=== PATIENT | female | born 1945 | race Caucasian/White ===

== ENCOUNTER 2020-11-18 17:16 | Inpatient (IN) | payer MEDICARE ==
[~2020-11-18] VITALS: Ht 160 cm; Wt 50.0 kg
--- NOTE | 2020-11-18 17:47 | NUR ---
CECILIA (SON) [phone] PLEASE CALL WITH AN UPDATE WHEN AVAILABLE
--- NOTE | 2020-11-18 18:17 | NUR ---
pt was on 6liter 02 nasal cannula, mildly SOB with talking, placed pt on NRB, pulse ox increased to 98% and pt stated she felt less SOB when talking, resting quietly on gurney, resp even and unlabored
[2020-11-18 18:53] LABS: BASOPHILS % (AUTO) 0.1 % (0-1); EOSINOPHILS % (AUTO) 0 % (0-6); MEAN PLATELET VOLUME 7.1 FL (7.4-10.4); RED CELL DISTRIBUTION WIDTH 15.7 % (11.5-14.5)
[2020-11-18 18:58] LABS: BASOPHILS # (AUTO) 0.1 X10'3 (0-0.2); LYMPHOCYTES # (AUTO) 125.5 X10'3 (1.1-4.8); LYMPHOCYTES % (AUTO) 89.1 % (21-51); MONOCYTES % (AUTO) 2.8 % (2-12); NEUTROPHILS # (AUTO) 11.3 X10'3 (1.8-7.7); PLATELET COUNT 245 X10'3 (140-440); RED BLOOD COUNT 4.09 X10'6 (4.20-5.60)
[2020-11-18 19:03] LABS: ALANINE AMINOTRANSFERASE 119 U/L (12-78); ALBUMIN 3.1 G/DL (3.4-5.0); ALBUMIN/GLOBULIN RATIO 0.9 (1.1-1.5); ALKALINE PHOSPHATASE 122 IU/L (46-116); ANION GAP 11 (8-16); ASPARTATE AMINO TRANSFERASE 118 U/L (10-37); BILIRUBIN,TOTAL 0.5 MG/DL (0.1-1.0); BLOOD UREA NITROGEN 13 MG/DL (7-18); BUN/CREATININE RATIO 16.9 (6.6-38.0); CALCIUM 8.8 MG/DL (8.5-10.1); CHLORIDE 100 MMOL/L (99-107); CREATININE 0.77 MG/DL (0.40-0.90); GLUCOSE 149 MG/DL (70-104); POTASSIUM 4.3 MMOL/L (3.5-5.1); SODIUM 140 MMOL/L (135-145); TOTAL CARBON DIOXIDE 28.8 MMOL/L (24-32); TOTAL PROTEIN 6.4 G/DL (6.4-8.2); eGFR 73 ML/MIN
[2020-11-18 19:04] LABS: D-DIMER 1.26 MG/L FEU (0-0.50)
--- NOTE | 2020-11-18 19:39 | NUR ---
O2 DECREASED TO 5.5 LTR ON OXY MASK. PT ABLE TO SPEAK IN FULL SCENTENCES. DOES C/O OF SOB.
[2020-11-18] MEDS ORDERED: normal saline 1000ml 1,000 ML IVB ONE (20:25)
[2020-11-18 20:39] LABS: HEMOGLOBIN 12.3 g/dl (12.0-16.0)
[2020-11-18 20:40] LABS: MEAN CORPUSCULAR HGB CONC 33.2 g/dL (33.0-36.5); MEAN CORPUSCULAR VOLUME 87.5 FL (78-98)
[2020-11-18 21:38] LABS: NUCLEATED RED BLOOD CELLS 2 /100WBC (0-0); TOTAL CELLS COUNTED 100
[2020-11-18 21:41] LABS: BURR CELLS 1+; PLATELET ESTIMATE NORMAL
[2020-11-18] MEDS ORDERED: iohexol 350MG/ML 100ml bottle IV ONE (22:58)
--- NOTE | 2020-11-18 23:15 | NUR ---
[facility] REJECTED TRANSFER DUE TO NO BEDS
--- NOTE | 2020-11-18 23:17 | NUR ---
[facility]IGI REJECTED TRANSFER DUE TO NOT BEING A TRAUMA, STROKE, OR STEMI
--- NOTE | 2020-11-19 00:13 | NUR ---
DARLING ACUÑA, EMRE HARRIS, BAN MARTÍNEZ, JOSÉ MIGUEL, CHRISSIE ALL REJECTED DUE TO NO BEDS
--- NOTE | 2020-11-19 00:43 | NUR ---
PT GIVEN COMODE AND WATER ,VITALS TAKEN PT ON FACE MASK WITH 5 LPM O2 GIVEN.
--- NOTE | 2020-11-19 00:53 | NUR ---
[facility] DECLINED, [facility] HAD A 3 DAY WAIT, DARLING HERRERA
--- NOTE | 2020-11-19 00:54 | NUR ---
EMRE, FIORDALIZA ABDULLAHI, [facility], [employer], [facility], GORGE, BAN BUENO DECLINED
--- NOTE | 2020-11-19 01:06 | NUR ---
[facility] DENIED
--- NOTE | 2020-11-19 06:09 | NUR ---
10 ltr O2 ON NON REBREATHER PER DECLINE IN SPO2. TEMP ELEVATED TO 101.5, INCREASE IN RESP AND HR. MD NOTIFIED.
--- NOTE | 2020-11-19 06:50 | NUR ---
CALLED [facility], NO BEDS. ONLY ACCEPTING STEMI, STROKE, OR TRAUMA
--- NOTE | 2020-11-19 07:16 | NUR ---
[facility] CALLED, WAITING FOR CALL BACK
[2020-11-19] MEDS ORDERED: levoFLOXACIN-Levaquin 750MG/D5 150 ML IV ONE (08:00)
--- NOTE | 2020-11-19 08:00 | NUR ---
pt desats with activity to the low 80's. pt switched from nrb to hfnc at 15 liters for pt's comfort
--- NOTE | 2020-11-19 08:25 | NUR ---
PT ON 15 LITERS NRB. RT NOTIFIED PT GETS VERY SOB WITH ACTIVITY. DESATS TO THE LOW 80'S WITH A LONG RECOVERY MD NOTIFED
--- NOTE | 2020-11-19 08:37 | NUR ---
[facility] HAS NO BEDS
--- NOTE | 2020-11-19 11:09 | NUR ---
pt has been resting offers no complaints
[2020-11-19 12:13] LABS: BASOPHILS % (AUTO) 0.2 % (0-1); MEAN CORPUSCULAR HEMOGLOBIN 28.9 PG (27.0-31.0); MEAN PLATELET VOLUME 6.5 FL (7.4-10.4)
[2020-11-19 12:16] LABS: BASOPHILS # (AUTO) 0.4 X10'3 (0-0.2); EOSINOPHILS # (AUTO) 0.3 X10'3 (0-0.9); EOSINOPHILS % (AUTO) 0.2 % (0-6); HEMOGLOBIN 10.5 g/dl (12.0-16.0); LYMPHOCYTES # (AUTO) 135.1 X10'3 (1.1-4.8); LYMPHOCYTES % (AUTO) 87.8 % (21-51); MEAN CORPUSCULAR HGB CONC 32.7 g/dL (33.0-36.5); MEAN CORPUSCULAR VOLUME 88.4 FL (78-98); MONOCYTES % (AUTO) 2.6 % (2-12); NEUTROPHILS # (AUTO) 14.2 X10'3 (1.8-7.7); NEUTROPHILS % (AUTO) 9.2 % (42-75); PLATELET COUNT 262 X10'3 (140-440); RED BLOOD COUNT 3.62 X10'6 (4.20-5.60); RED CELL DISTRIBUTION WIDTH 15.6 % (11.5-14.5)
[2020-11-19 12:23] LABS: ALBUMIN 2.5 G/DL (3.4-5.0); ANION GAP 7 (8-16); BLOOD UREA NITROGEN 16 MG/DL (7-18); BUN/CREATININE RATIO 17.6 (6.6-38.0); CHLORIDE 100 MMOL/L (99-107); CREATININE 0.91 MG/DL (0.40-0.90); GLUCOSE 121 MG/DL (70-104); POTASSIUM 5.8 MMOL/L (3.5-5.1); SODIUM 132 MMOL/L (135-145); TOTAL CARBON DIOXIDE 24.6 MMOL/L (24-32); eGFR 61 ML/MIN
[2020-11-19 13:06] LABS: BANDS% (MANUAL) 2 % (0-10); MONOCYTES % (MANUAL) 1 % (2-12); NEUTROPHILS % (MANUAL) 7 % (42-75); SMUDGE CELLS 2+; TOTAL CELLS COUNTED 100
[2020-11-19 13:07] LABS: LYMPHOCYTES % (MANUAL) 90 % (21-51)
[2020-11-19 13:08] LABS: ELLIPTOCYTES FEW; PLATELET ESTIMATE NORMAL; ROULEAUX 1+; SCHISTOCYTES FEW; TEAR DROP CELLS FEW
[2020-11-19] MEDS ORDERED: REMDESIVIR INJ 100 MG in normal saline 100ml IV soln 80 ML IV STA (14:37)
[2020-11-19] MEDS ORDERED: REMDESIVIR 200 MG in NS 100ml IVPB Loading dose IV ONE (14:45)
[2020-11-19] MEDS ORDERED: NO HOME MEDS PO (14:47)
[2020-11-19 16:35] LABS: ABG BASE EXCESS -0.2 mmol/L (-2.0-2.0); ABG HCO3 22.1 mmol/L (22.0-26.0); ABG OXYGEN SATURATION 87.9 % (94-97); ABG PCO2 (T) 29.9 mmHg (32.0-45.0); ABG PO2 (T) 54.4 mmHg (75.0-100.0); ALLEN'S TEST POSITIVE; FCOHb 0.1 % (0.0-3.9); FLOW 15 L/min; FMetHb 0.3 % (0.0-1.5); FO2Hb 87.5 % (94-97); PATIENT TEMPERATURE 37.9; TOTAL HEMOGLOBIN 10.8 G/dl (12.0-16.0)
--- NOTE | 2020-11-19 16:49 | NUR ---
abg results to md. pt may go on bipap when needed.
--- NOTE | 2020-11-19 17:29 | NUR ---
PT ON V60 PLUS HIFLO Addendum: 11/19/20 at 1730 by Nohelia De Santiago RT Amended: Links added.
[2020-11-19] MEDS ORDERED: potassium Cl 20 mEq SR tablet PO PRN ×2 (19:35)
[2020-11-19] MEDS ORDERED: ondansetron/PF 4mg/2ml inj IV PRN (19:35)
[2020-11-19] MEDS: normal saline 1000ml 1,000 ML IV SCH (19:35)
[2020-11-19] MEDS: enoxaparin 40mg/0.4ml syringe SUBCUT SCH (19:35)
[2020-11-19] MEDS ORDERED: magnesium Cl slow-release 64mg tablet PO PRN (19:35)
[2020-11-19] MEDS ORDERED: magnesium 2GM in 50ml NS 50 ML IV PRN (19:35)
[2020-11-19] MEDS ORDERED: potassium Cl 40MEQ/1/2NS 520ml 520 ML IV PRN ×2 (19:35)
[2020-11-19] MEDS ORDERED: magnesium 4gm in 100ml NS 100 ML IV PRN (19:35)
[2020-11-19] MEDS: K and/or MAG REPLACEMENT MC SCH (20:00)
--- NOTE | 2020-11-19 21:27 | NUR ---
PT UP TO COMMODE W/ STANDBY ASSIST. PT EXTREAMLY WEAK. O2 SATS DROPPED TO 68% ON HIGH FLOW 30%. PT SLOW TO RECOVER. RT PAGED TO BEDSIDE. NON REBREATHER 15 LTS APPLIED OVER HIGH FLOW NC. AFTER 8 MINIUTES SPO2 TO 85%. PT SHOWS SIGNIFICANT DECLINE IN MUSCLE STRENGHT FROM LAST NIGHT.
[2020-11-19 21:51] LABS: POTASSIUM 4.5 MMOL/L (3.5-5.1)
[2020-11-19 22:35] LABS: C-REACTIVE PROTEIN 8.57 MG/DL (0.0-0.5)
--- NOTE | 2020-11-19 23:30 | NUR ---
RECEIVED REPORT FROM NOREEN RUSSELL.
[2020-11-19 23:55] LABS: D-DIMER 15.18 MG/L FEU (0-0.50)
[2020-11-20] VITALS (7 sets, daily range): BP systolic 97–118; BP diastolic 50–62
[2020-11-20] MEDS: dexamethasone 4mg/ml inj IV SCH ×3 (00:27→20:17)
--- NOTE | 2020-11-20 01:03 | NUR ---
MESSAGE: [id number] ISABEL LANCE 74 HERE FOR COVID. RECENT D-DIMER UP TO 15.18 FROM 1.26. THANK YOU. #[phone] SOCO
--- NOTE | 2020-11-20 01:11 | NUR ---
DISCUSSED WITH DR. BENTLEY REGARDING D-DIMER OF 15.18. SAID GIVE WT BASED LOVENOX ONCE. WHICH SHE RECEIVED 40MG ALREADY SO I WILL PUT AN ORDER FOR ANOTHER 40MG LOVENOX TO GIVE NOW. Addendum: 11/20/20 at 0124 by Heather Thomas RN I DID NOT PUT THE ORDER FOR 40MG. BUT CLARFY THE DOSE WITH DR. BENTLEY. AND SHE ADVISED TO GIVE 10MG.
[2020-11-20] MEDS ORDERED: enoxaparin 40mg/0.4ml syringe SUBCUT SCH (01:15)
--- NOTE | 2020-11-20 01:23 | NUR ---
MESSAGE: [id number] ISABEL LANCE 74 COVID. I RECEIVED ORDER EARLIER FOR WT BASE LOVENOX ONCE. I FORGOT TO MENTION SHE RECEIVED 40MG EARLIER TONIGHT. AND SHE ONLY WEIGHS 50MG. DO YOU MEAN ANOTHER 10MG LOVENOX OR FULL 50MG? THANK YOU. SOCO
[2020-11-20] MEDS ORDERED: enoxaparin 30mg/0.3ml syringe SUBCUT ONE (01:25)
--- NOTE | 2020-11-20 01:38 | NUR ---
THERE WAS NO LINE TO GIVE JUST 10MG LOVENOX OUT OF 30MG SYRINGE. TALKED TO PHARMACY AND SHE SAID SHE WILL MAKE IT.
[2020-11-20] MEDS ORDERED: enoxaparin 50mg/0.5ml (from 3ml vial) syringe SUBCUT ONE (01:40)
[2020-11-20] MEDS: acetaminophen 325mg tablet PO PRN (01:42)
[2020-11-20] MEDS: normal saline 1000ml 1,000 ML IV SCH ×2 (06:06→15:47)
--- NOTE | 2020-11-20 06:35 | NUR ---
Problems reprioritized. Patient report given, questions answered & plan of care reviewed with NOREEN VILA.
[2020-11-20 08:06] LABS: BASOPHILS # (AUTO) 0.1 X10'3 (0-0.2); BASOPHILS % (AUTO) 0.1 % (0-1); EOSINOPHILS # (AUTO) 0.1 X10'3 (0-0.9); EOSINOPHILS % (AUTO) 0 % (0-6); HEMATOCRIT 33.9 % (35.0-45.0); HEMOGLOBIN 10.3 g/dl (12.0-16.0); LYMPHOCYTES # (AUTO) 106.9 X10'3 (1.1-4.8); LYMPHOCYTES % (AUTO) 90.9 % (21-51); MEAN CORPUSCULAR HEMOGLOBIN 27.8 PG (27.0-31.0); MEAN CORPUSCULAR HGB CONC 30.5 g/dL (33.0-36.5); MEAN CORPUSCULAR VOLUME 91.3 FL (78-98); MEAN PLATELET VOLUME 6.7 FL (7.4-10.4); MONOCYTES # (AUTO) 1.8 X10'3 (0-0.9); MONOCYTES % (AUTO) 1.5 % (2-12); NEUTROPHILS # (AUTO) 8.8 X10'3 (1.8-7.7); NEUTROPHILS % (AUTO) 7.5 % (42-75); PLATELET COUNT 223 X10'3 (140-440); RED BLOOD COUNT 3.71 X10'6 (4.20-5.60); RED CELL DISTRIBUTION WIDTH 15.6 % (11.5-14.5)
[2020-11-20 08:12] LABS: ALBUMIN 2.2 G/DL (3.4-5.0); ANION GAP 13 (8-16); BLOOD UREA NITROGEN 18 MG/DL (7-18); CALCIUM 7.7 MG/DL (8.5-10.1); CHLORIDE 104 MMOL/L (99-107); CREATININE 0.75 MG/DL (0.40-0.90); GLUCOSE 141 MG/DL (70-104); MAGNESIUM 2.2 MG/DL (1.5-2.4); POTASSIUM 3.6 MMOL/L (3.5-5.1); SODIUM 141 MMOL/L (135-145); TOTAL CARBON DIOXIDE 23.7 MMOL/L (24-32); eGFR 76 ML/MIN
[2020-11-20] MEDS: REMDESIVIR 100 MG in NS 100ml IVPB IV SCH (08:40)
[2020-11-20] MEDS: enoxaparin 40mg/0.4ml syringe SUBCUT SCH (08:40)
[2020-11-20 09:04] LABS: TOTAL CELLS COUNTED 100
[2020-11-20 09:05] LABS: ELLIPTOCYTES FEW; PLATELET ESTIMATE NORMAL
[2020-11-20 09:06] LABS: TEAR DROP CELLS FEW
[2020-11-20 09:07] LABS: BURR CELLS 1+; SCHISTOCYTES FEW; SMUDGE CELLS 3+
[2020-11-20 13:06] LABS: WHITE BLOOD COUNT 117.7 X10'3 (4.5-11.0)
--- NOTE | 2020-11-20 16:34 | NUR ---
Dr. TAMEZ was paged . regarding pt in 4012 B, laboratory called and wanted to know if the new lab ordered under a miscellaneous order is needed because the same lab was sent yesterday and pending results ,fady SORTO [phone]
[2020-11-20] MEDS ORDERED: LIDOcaine 2% 10ml TOPICAL JELLY (Urojet) TP ONE (18:20)
[2020-11-20] MEDS: K and/or MAG REPLACEMENT MC SCH (20:00)
[2020-11-21] MEDS: normal saline 1000ml 1,000 ML IV SCH (02:46)
[2020-11-21 06:00] VITALS: BP 95/48
--- NOTE | 2020-11-21 06:05 | NUR ---
RECEIVED REPORT FROM NOREEN WAN
--- NOTE | 2020-11-21 06:26 | NUR ---
AT THE TIME OF MORNING VITAL @052 Addendum: 11/21/20 at 0630 by Heather Thomas RN @0525, PT WAS LAYING ON RIGHT SIDE AND O2 SAT 87%. CHANGED POSITION TO LEFT SIDE AND STARTED DESATTING DOWN TO MID 60'S. O2 NOT COMING UP. RT WAS CALLED. PLACED PT ON PRONE AGAIN AND IT TOOK ABOUT 20 MIN TO COME UP TO MID 80'S.
--- NOTE | 2020-11-21 06:36 | NUR ---
Problems reprioritized. Patient report given, questions answered & plan of care reviewed with NOREEN DICKERSON.
[2020-11-21] MEDS: K and/or MAG REPLACEMENT MC SCH ×2 (08:00→19:44)
[2020-11-21] MEDS: dexamethasone 4mg/ml inj IV SCH ×2 (08:13→19:54)
[2020-11-21] MEDS: enoxaparin 50mg/0.5ml (from 3ml vial) syringe SUBCUT SCH ×2 (08:15→19:54)
[2020-11-21] MEDS: REMDESIVIR 100 MG in NS 100ml IVPB IV SCH (08:16)
[2020-11-21 08:36] LABS: BASOPHILS % (AUTO) 0.1 % (0-1); EOSINOPHILS % (AUTO) 0 % (0-6); MEAN CORPUSCULAR VOLUME 90.4 FL (78-98)
[2020-11-21 08:41] LABS: BASOPHILS # (AUTO) 0.2 X10'3 (0-0.2); HEMOGLOBIN 10.4 g/dl (12.0-16.0); LYMPHOCYTES % (AUTO) 82.7 % (21-51); MEAN CORPUSCULAR HEMOGLOBIN 28.5 PG (27.0-31.0); MEAN CORPUSCULAR HGB CONC 31.6 g/dL (33.0-36.5); MEAN PLATELET VOLUME 6.8 FL (7.4-10.4); MONOCYTES # (AUTO) 7.3 X10'3 (0-0.9); MONOCYTES % (AUTO) 4.2 % (2-12); NEUTROPHILS # (AUTO) 22.5 X10'3 (1.8-7.7); PLATELET COUNT 227 X10'3 (140-440); RED BLOOD COUNT 3.65 X10'6 (4.20-5.60); RED CELL DISTRIBUTION WIDTH 15.8 % (11.5-14.5)
[2020-11-21 09:15] LABS: ANION GAP 11 (8-16); BLOOD UREA NITROGEN 18 MG/DL (7-18); BUN/CREATININE RATIO 29.5 (6.6-38.0); CALCIUM 7.4 MG/DL (8.5-10.1); CHLORIDE 106 MMOL/L (99-107); CREATININE 0.61 MG/DL (0.40-0.90); GLUCOSE 135 MG/DL (70-104); MAGNESIUM 2.2 MG/DL (1.5-2.4); POTASSIUM 4.3 MMOL/L (3.5-5.1); SODIUM 141 MMOL/L (135-145); TOTAL CARBON DIOXIDE 23.6 MMOL/L (24-32); eGFR > 90 ML/MIN
[2020-11-21 09:21] LABS: WHITE BLOOD COUNT 172.9 X10'3 (4.5-11.0)
[2020-11-21 10:00] VITALS: BP 125/56
[2020-11-21 11:15] LABS: C-REACTIVE PROTEIN 7.02 MG/DL (0.0-0.5); LACTATE DEHYDROGENASE 623 U/L (81-234)
[2020-11-21 11:23] LABS: D-DIMER 5.24 MG/L FEU (0-0.50)
[2020-11-21 11:25] LABS: TOTAL CELLS COUNTED 100
[2020-11-21 11:26] LABS: PLATELET ESTIMATE NORMAL; SMUDGE CELLS 3+
[2020-11-21 11:27] LABS: BURR CELLS 2+
[2020-11-21 11:28] LABS: ACANTHOCYTES FEW; SCHISTOCYTES FEW
--- NOTE | 2020-11-21 16:30 | NUR ---
fam member requested to have leukemia labs drawn for family hx of leukemia and possible presence of leukemia in patient, hospitalist denied this request stating that there is no oncologist to f/u w/about the labs if they were drawn and that the patient needs to get over her covid illness first and then f/u w/outpatient oncologist
[2020-11-21 18:00] VITALS: BP 118/60
--- NOTE | 2020-11-21 18:38 | NUR ---
gave report to reid urban
--- NOTE | 2020-11-21 21:49 | NUR ---
update given to Eduardo her son. son again requested that labs be drawn for leukemia studies. Dr. Bailey note indicates that he thought they were already drawn. will ask MD in am.
[2020-11-21 22:00] VITALS: BP 57/60
--- NOTE | 2020-11-21 23:30 | NUR ---
pt states she is anxious and agitated "I just don't know why" noted breathing work has increased and resp rate up to 28-30 with HR at 110. educated on side effects of decadron as well as air hunger symptoms. noted giving patient robitussin and tylenol to assist with painful stomach and cough suppression. verbalized understanding. "I feel like there is more going on here than just the covid." will continue to closely monitor sats and air hunger in case pt needs cpap or higher. educated pt on next steps for increased oxygen demand. verbalized understanding.
[2020-11-21] MEDS: guaiFENesin/DM 10ml UD oral syrup PO PRN (23:44)
[2020-11-21] MEDS: acetaminophen 325mg tablet PO PRN (23:45)
[2020-11-22 02:00] VITALS: BP 99/48
[2020-11-22] MEDS: guaiFENesin/DM 10ml UD oral syrup PO PRN ×3 (05:53→19:59)
[2020-11-22] MEDS: acetaminophen 325mg tablet PO PRN ×3 (05:54→20:28)
[2020-11-22 06:00] VITALS: BP 108/55
--- NOTE | 2020-11-22 06:05 | NUR ---
received report from reid urban
--- NOTE | 2020-11-22 06:27 | NUR ---
reported to days. noted pt fever broke and bed sweaty - total linen change, shower cap on hair. repositioned, robitussin given. noted desat to 70% with any rolling or movement. encouraged pt to prone as much as possible. pt able to have a couple bites of applesauce and ensure ordered for meals.
[2020-11-22] MEDS: K and/or MAG REPLACEMENT MC SCH ×2 (07:47→22:00)
[2020-11-22] MEDS: lactose-reduced food (Ensure High Protein) 237ml bottle PO SCH ×4 (07:47→18:00)
[2020-11-22] MEDS: REMDESIVIR 100 MG in NS 100ml IVPB IV SCH (07:51)
[2020-11-22] MEDS: dexamethasone 4mg/ml inj IV SCH ×2 (07:52→19:59)
[2020-11-22] MEDS: enoxaparin 50mg/0.5ml (from 3ml vial) syringe SUBCUT SCH ×2 (07:53→20:00)
[2020-11-22 08:58] LABS: BASOPHILS # (AUTO) 0.5 X10'3 (0-0.2); BASOPHILS % (AUTO) 0.3 % (0-1); EOSINOPHILS # (AUTO) 0.4 X10'3 (0-0.9); EOSINOPHILS % (AUTO) 0.2 % (0-6); HEMATOCRIT 33.3 % (35.0-45.0); HEMOGLOBIN 10.5 g/dl (12.0-16.0); LYMPHOCYTES # (AUTO) 140.7 X10'3 (1.1-4.8); LYMPHOCYTES % (AUTO) 80.5 % (21-51); MEAN CORPUSCULAR HEMOGLOBIN 28.1 PG (27.0-31.0); MEAN CORPUSCULAR HGB CONC 31.4 g/dL (33.0-36.5); MEAN CORPUSCULAR VOLUME 89.5 FL (78-98); MEAN PLATELET VOLUME 6.8 FL (7.4-10.4); MONOCYTES # (AUTO) 3.9 X10'3 (0-0.9); MONOCYTES % (AUTO) 2.2 % (2-12); NEUTROPHILS # (AUTO) 29.5 X10'3 (1.8-7.7); NEUTROPHILS % (AUTO) 16.8 % (42-75); PLATELET COUNT 248 X10'3 (140-440); RED BLOOD COUNT 3.72 X10'6 (4.20-5.60); RED CELL DISTRIBUTION WIDTH 15.9 % (11.5-14.5)
[2020-11-22 09:23] LABS: D-DIMER 2.96 MG/L FEU (0-0.50)
[2020-11-22 09:31] LABS: ANION GAP 8 (8-16); BLOOD UREA NITROGEN 20 MG/DL (7-18); BUN/CREATININE RATIO 26.7 (6.6-38.0); CHLORIDE 107 MMOL/L (99-107); CREATININE 0.75 MG/DL (0.40-0.90); GLUCOSE 155 MG/DL (70-104); POTASSIUM 3.7 MMOL/L (3.5-5.1); SODIUM 142 MMOL/L (135-145)
[2020-11-22 09:32] LABS: ALBUMIN 1.9 G/DL (3.4-5.0); C-REACTIVE PROTEIN 5.65 MG/DL (0.0-0.5); MAGNESIUM 2.2 MG/DL (1.5-2.4); eGFR 76 ML/MIN
[2020-11-22 09:47] VITALS: BP 120/60
[2020-11-22 10:53] LABS: SMUDGE CELLS 3+; TOTAL CELLS COUNTED 100
[2020-11-22 10:54] LABS: BURR CELLS 1+; PLATELET ESTIMATE NORMAL; SCHISTOCYTES FEW
[2020-11-22 14:00] VITALS: BP 105/62
[2020-11-22 18:00] VITALS: BP 125/67
--- NOTE | 2020-11-22 18:06 | NUR ---
gave report to reid urban
[2020-11-22 22:00] VITALS: BP 113/51
[2020-11-23 02:00] VITALS: BP 113/55
[2020-11-23] MEDS: guaiFENesin/DM 10ml UD oral syrup PO PRN ×2 (03:25→09:55)
[2020-11-23] MEDS: acetaminophen 325mg tablet PO PRN ×3 (03:25→17:17)
--- NOTE | 2020-11-23 04:00 | NUR ---
repositioned patient onto right side again as pt was keeping sats at 88%. tightened HF oxygen, tolerated better.
--- NOTE | 2020-11-23 05:08 | NUR ---
pt stayed at 40L 100%FiO2 and 15L NRB tonight. sats mostly in th 90-94% range. desat with any eating or movement. non productive cough. robitussin and tylenol ATC. right side laying better than left. "I'm just so exhausted I'm just going to keep sleeping."
--- NOTE | 2020-11-23 06:21 | NUR ---
Patient in room ORTHO 4013. I have received report from Naty SORTO and had the opportunity to ask questions and assume patient care.
--- NOTE | 2020-11-23 06:24 | NUR ---
reported to days. noted sats again down to 90%. pt may benefit from cpap today.
[2020-11-23 06:25] VITALS: BP 125/65
[2020-11-23] MEDS: REMDESIVIR 100 MG in NS 100ml IVPB IV SCH (07:00)
[2020-11-23] MEDS: enoxaparin 50mg/0.5ml (from 3ml vial) syringe SUBCUT SCH ×2 (07:01→20:50)
[2020-11-23] MEDS: dexamethasone 4mg/ml inj IV SCH ×2 (07:01→20:50)
[2020-11-23 07:57] LABS: EOSINOPHILS % (AUTO) 0 % (0-6); HEMOGLOBIN 11.1 g/dl (12.0-16.0)
[2020-11-23] MEDS: K and/or MAG REPLACEMENT MC SCH ×2 (08:00→19:26)
[2020-11-23 08:03] LABS: BASOPHILS # (AUTO) 0.4 X10'3 (0-0.2); BASOPHILS % (AUTO) 0.3 % (0-1); HEMATOCRIT 35.1 % (35.0-45.0); LYMPHOCYTES # (AUTO) 123.2 X10'3 (1.1-4.8); LYMPHOCYTES % (AUTO) 82.6 % (21-51); MEAN CORPUSCULAR HEMOGLOBIN 28.2 PG (27.0-31.0); MEAN CORPUSCULAR HGB CONC 31.5 g/dL (33.0-36.5); MEAN CORPUSCULAR VOLUME 89.6 FL (78-98); MEAN PLATELET VOLUME 6.6 FL (7.4-10.4); MONOCYTES # (AUTO) 6.4 X10'3 (0-0.9); MONOCYTES % (AUTO) 4.3 % (2-12); NEUTROPHILS % (AUTO) 12.8 % (42-75); PLATELET COUNT 226 X10'3 (140-440); RED BLOOD COUNT 3.92 X10'6 (4.20-5.60); RED CELL DISTRIBUTION WIDTH 16.2 % (11.5-14.5)
[2020-11-23 08:07] LABS: WHITE BLOOD COUNT 149.1 X10'3 (4.5-11.0)
[2020-11-23 08:17] LABS: ALBUMIN 1.9 G/DL (3.4-5.0); ANION GAP 8 (8-16); BLOOD UREA NITROGEN 20 MG/DL (7-18); BUN/CREATININE RATIO 32.3 (6.6-38.0); C-REACTIVE PROTEIN 8.03 MG/DL (0.0-0.5); CHLORIDE 107 MMOL/L (99-107); CREATININE 0.62 MG/DL (0.40-0.90); GLUCOSE 139 MG/DL (70-104); MAGNESIUM 2.3 MG/DL (1.5-2.4); POTASSIUM 4.5 MMOL/L (3.5-5.1); SODIUM 144 MMOL/L (135-145); TOTAL CARBON DIOXIDE 29.1 MMOL/L (24-32); eGFR > 90 ML/MIN
--- NOTE | 2020-11-23 08:19 | NUR ---
PAGER ID: [phone] MESSAGE: [id number] Lindsay BOLANOS critical at 149.1 crozier [phone]
[2020-11-23] MEDS: lactose-reduced food (Ensure High Protein) 237ml bottle PO SCH ×3 (08:24→18:00)
[2020-11-23 08:33] LABS: TOTAL CELLS COUNTED 100
[2020-11-23 08:34] LABS: ANISOCYTOSIS 1+; PLATELET ESTIMATE NORMAL; POIKILOCYTOSIS FEW; SCHISTOCYTES FEW
[2020-11-23 10:07] VITALS: BP_SYST 127
[2020-11-23] MEDS: morphine 2 MG/ML inj. syringe IV PRN ×3 (10:42→23:21)
[2020-11-23 10:58] LABS: D-DIMER 3.32 MG/L FEU (0-0.50)
--- NOTE | 2020-11-23 11:29 | NUR ---
Patient is proned at this time
[2020-11-23 14:00] VITALS: BP 110/71
--- NOTE | 2020-11-23 14:54 | NUR ---
Initial: Pt admit DX COVID-19, PNA, acute respiratory failure, and probable CLL per MD note. PO remains poor ~23% avg heart healthy meals past 4 days refusing yesterday w/ 100% ensure high protein TIDWM started 11/22 by night RN not meeting needs. Noted on 55L HFNC today per EMR likely impacting PO intake. LBM 11/17; would benefit from routine bowel care this admit. RD attempted to reach RN multiple times today regarding change to Ensure Enlive ONS as more appropriate given PO trends and routine bowel care if MD agreeable however unable to reach RN. Pt would also benefit from liberalizing to regular diet given no PMH, Na WNL, and poor PO trends. Will continue to monitor. Rec: 1. liberalize to regular diet; encourage PO 2. Ensure High Protein TIDWM per night RN; change to Ensure Enlive TIDWM to optimize kcal/protein intake if MD agreeable 3. routine bowel care; 6 days constipation without bowel care this admit 4. scaled wt this admit; subsequent weekly wts Addendum: 11/23/20 at [address] Amended: Links added.
--- NOTE | 2020-11-23 16:33 | NUR ---
Patient has spent much of the day in prone position
[2020-11-23] MEDS ORDERED: guaiFENesin 100mg/DM 10mg oral syrup 5 ML CUP PO PRN (17:30)
[2020-11-23 18:00] VITALS: BP 124/66
--- NOTE | 2020-11-23 18:38 | NUR ---
Problems reprioritized. Patient report given, questions answered & plan of care reviewed with Coretta SORTO.
--- NOTE | 2020-11-23 18:45 | NUR ---
Patient in room ORTHO 4013. I have received report from Deepika SORTO and had the opportunity to ask questions and assume patient care.
[2020-11-23 22:00] VITALS: BP 132/83
--- NOTE | 2020-11-23 23:20 | NUR ---
Took morphine out to give to pt per MD orders. Pts IV infiltrated. Unable to give morphine. Attempted to start new IV unsuccessfully. Called the ER to see if they are able to help. Addendum: 11/24/20 at 0300 by Coretta Lester RN ER nurse was able to get a 22g in her L forearm So I was able to give pt morphine per MD orders at this time.
[2020-11-24 02:00] VITALS: BP 117/65
[2020-11-24] MEDS: morphine 2 MG/ML inj. syringe IV PRN (03:01)
[2020-11-24 06:00] VITALS: BP 100/57
--- NOTE | 2020-11-24 06:34 | NUR ---
Problems reprioritized. Patient report given, questions answered & plan of care reviewed with Brad SORTO.
[2020-11-24] MEDS: lactose-reduced food (Ensure High Protein) 237ml bottle PO SCH ×4 (08:00→19:13)
[2020-11-24] MEDS: K and/or MAG REPLACEMENT MC SCH ×2 (08:00→20:00)
[2020-11-24] MEDS: dexamethasone 4mg/ml inj IV SCH ×2 (08:09→20:59)
[2020-11-24] MEDS: enoxaparin 50mg/0.5ml (from 3ml vial) syringe SUBCUT SCH ×2 (08:10→21:00)
[2020-11-24 08:13] LABS: BASOPHILS % (AUTO) 0.2 % (0-1); EOSINOPHILS % (AUTO) 0 % (0-6); MEAN PLATELET VOLUME 6.8 FL (7.4-10.4)
[2020-11-24 08:16] LABS: BASOPHILS # (AUTO) 0.2 X10'3 (0-0.2); HEMATOCRIT 38.4 % (35.0-45.0); LYMPHOCYTES # (AUTO) 121.8 X10'3 (1.1-4.8); LYMPHOCYTES % (AUTO) 82.9 % (21-51); MEAN CORPUSCULAR HEMOGLOBIN 28.2 PG (27.0-31.0); MEAN CORPUSCULAR HGB CONC 31.3 g/dL (33.0-36.5); MEAN CORPUSCULAR VOLUME 90.2 FL (78-98); MONOCYTES # (AUTO) 5.6 X10'3 (0-0.9); MONOCYTES % (AUTO) 3.8 % (2-12); NEUTROPHILS # (AUTO) 19.3 X10'3 (1.8-7.7); NEUTROPHILS % (AUTO) 13.1 % (42-75); PLATELET COUNT 241 X10'3 (140-440); RED BLOOD COUNT 4.26 X10'6 (4.20-5.60); RED CELL DISTRIBUTION WIDTH 16.5 % (11.5-14.5)
[2020-11-24 08:27] LABS: WHITE BLOOD COUNT 146.9 X10'3 (4.5-11.0)
[2020-11-24 08:28] LABS: D-DIMER 2.47 MG/L FEU (0-0.50)
[2020-11-24 08:43] LABS: ALBUMIN 2.2 G/DL (3.4-5.0); ANION GAP 7 (8-16); BLOOD UREA NITROGEN 20 MG/DL (7-18); BUN/CREATININE RATIO 30.8 (6.6-38.0); C-REACTIVE PROTEIN 5.07 MG/DL (0.0-0.5); CALCIUM 8.1 MG/DL (8.5-10.1); CHLORIDE 102 MMOL/L (99-107); CREATININE 0.65 MG/DL (0.40-0.90); GLUCOSE 136 MG/DL (70-104); MAGNESIUM 2.4 MG/DL (1.5-2.4); POTASSIUM 4.7 MMOL/L (3.5-5.1); SODIUM 141 MMOL/L (135-145); TOTAL CARBON DIOXIDE 32.1 MMOL/L (24-32); eGFR 89 ML/MIN
[2020-11-24 09:06] LABS: ANISOCYTOSIS 1+; PLATELET ESTIMATE NORMAL; POIKILOCYTOSIS FEW; SCHISTOCYTES FEW; TOTAL CELLS COUNTED 100
[2020-11-24 11:00] VITALS: BP 113/54
[2020-11-24 16:00] VITALS: BP 103/51
--- NOTE | 2020-11-24 17:24 | NUR ---
PT STATED DR. TAMEZ TOOK HER OFF HIFLOW NC AND SAID SHE DIDN'T HAVE TO WEAR IT. PT ON NRB ONLY STATING 88%. EDUCATED PT ON HIFLOW NC AND NEEDING HUMIDIFIACTION PT REFUSED AND AGAIN STATED DR. TAMEZ TOLD ME I DON'T HAVE TO WEAR IT. NO INFORMATION IN DR. TAMEZ PROGRESS NOTES Addendum: 11/24/20 at 1726 by Nohelia De Santiago RT Amended: Links added.
[2020-11-24 18:00] VITALS: BP 121/61
--- NOTE | 2020-11-24 18:30 | NUR ---
Patient in room ORTHO 4013. I have received report from Brad SORTO and had the opportunity to ask questions and assume patient care. Addendum: 11/24/20 at 1847 by Carlita Banda RN Amended: Links added.
--- NOTE | 2020-11-24 20:50 | NUR ---
Pt.awake A & O at this time. Pt. exhibiting mild SOB on HFNC at fio2 of 100% saturating between 88% to 90%. Elevated HOB into high fowlers position to facilitate better breathing- non re-breath mask in place. Encouraged pt. to lay in prone position to facilitate better lung ventilation; pt. cooperative and participating in proning. Bed in low position and call light within reach. Addendum: 11/25/20 at 0209 by Carlita Banda RN Amended: Links added.
[2020-11-24 22:00] VITALS: BP 127/73
[2020-11-25 02:00] VITALS: BP 115/65
[2020-11-25 06:00] VITALS: BP 104/53
--- NOTE | 2020-11-25 06:20 | NUR ---
Problems reprioritized. Patient report given, questions answered & plan of care reviewed with Dee OSRTO. Addendum: 11/25/20 at 0700 by Carlita Banda RN Amended: Links added.
--- NOTE | 2020-11-25 06:52 | NUR ---
Patient in room ORTHO 4013B. I have received report from NOREEN KIMBLE and had the opportunity to ask questions and assume patient care.
[2020-11-25 07:58] LABS: D-DIMER 1.66 MG/L FEU (0-0.50)
[2020-11-25] MEDS: K and/or MAG REPLACEMENT MC SCH ×2 (08:00→20:00)
[2020-11-25 08:13] LABS: C-REACTIVE PROTEIN 2.87 MG/DL (0.0-0.5); MAGNESIUM 2.4 MG/DL (1.5-2.4)
[2020-11-25] MEDS: dexamethasone 4mg/ml inj IV SCH ×2 (08:19→20:33)
[2020-11-25 10:00] VITALS: BP 101/65
[2020-11-25] MEDS: enoxaparin 50mg/0.5ml (from 3ml vial) syringe SUBCUT SCH ×2 (10:28→20:33)
[2020-11-25 14:00] VITALS: BP 111/63
--- NOTE | 2020-11-25 17:46 | NUR ---
Page Sent PAGER ID: [phone] MESSAGE: BECKA [phone] RE: ISABEL LANCE [id number] CAN I GET A BOWEL REGIMEN FOR PT? SHE DOES NOT REMEMBER LAST BM, AND LAST CHARTED WAS SEVERAL DAYS AGO. PT DOES HAVE ACTIVE BOWEL SOUNDS. THANKS!
[2020-11-25 18:00] VITALS: BP 127/80
[2020-11-25] MEDS: lactose-reduced food (Ensure High Protein) 237ml bottle PO SCH (18:08)
--- NOTE | 2020-11-25 18:40 | NUR ---
Problems reprioritized. Patient report given, questions answered & plan of care reviewed with NOREEN LESLIE.
[2020-11-25 22:00] VITALS: BP 118/69
[2020-11-26] MEDS: LORazepam 0.5 MG tablet PO PRN (01:21)
[2020-11-26 02:00] VITALS: BP 113/71
--- NOTE | 2020-11-26 06:26 | NUR ---
Patient in room ORTHO 4013. I have received report from Linda SORTO and had the opportunity to ask questions and assume patient care.
[2020-11-26] MEDS ORDERED: magnesium hydroxide 30ml (MOM) UD suspension PO ONE (07:00)
[2020-11-26 07:37] VITALS: BP 102/66
[2020-11-26 07:41] LABS: D-DIMER 1.96 MG/L FEU (0-0.50)
[2020-11-26 07:53] LABS: C-REACTIVE PROTEIN 2.7 MG/DL (0.0-0.5); MAGNESIUM 2.6 MG/DL (1.5-2.4)
[2020-11-26] MEDS: dexamethasone 4mg/ml inj IV SCH (07:55)
[2020-11-26] MEDS: docusate sod 100mg capsule PO SCH ×2 (07:55→19:26)
[2020-11-26] MEDS: enoxaparin 50mg/0.5ml (from 3ml vial) syringe SUBCUT SCH ×2 (07:56→19:26)
[2020-11-26] MEDS: K and/or MAG REPLACEMENT MC SCH ×2 (08:00→19:25)
[2020-11-26] MEDS: lactose-reduced food (Ensure High Protein) 237ml bottle PO SCH ×3 (08:00→18:00)
[2020-11-26 09:31] LABS: ALANINE AMINOTRANSFERASE 108 U/L (12-78); ALBUMIN/GLOBULIN RATIO 0.6 (1.1-1.5); ALKALINE PHOSPHATASE 137 IU/L (46-116); ANION GAP 5 (8-16); ASPARTATE AMINO TRANSFERASE 102 U/L (10-37); BILIRUBIN,TOTAL 0.8 MG/DL (0.1-1.0); BLOOD UREA NITROGEN 22 MG/DL (7-18); BUN/CREATININE RATIO 37.9 (6.6-38.0); CALCIUM 8.4 MG/DL (8.5-10.1); CHLORIDE 102 MMOL/L (99-107); CREATININE 0.58 MG/DL (0.40-0.90); GLUCOSE 115 MG/DL (70-104); POTASSIUM 4.6 MMOL/L (3.5-5.1); SODIUM 137 MMOL/L (135-145); TOTAL PROTEIN 5.2 G/DL (6.4-8.2); eGFR > 90 ML/MIN
[2020-11-26 10:10] LABS: EOSINOPHILS % (AUTO) 0 % (0-6); HEMOGLOBIN 10.3 g/dl (12.0-16.0); MEAN CORPUSCULAR VOLUME 89.4 FL (78-98); MONOCYTES % (AUTO) 0.5 % (2-12)
[2020-11-26 10:13] LABS: BASOPHILS # (AUTO) 0.9 X10'3 (0-0.2); BASOPHILS % (AUTO) 0.6 % (0-1); HEMATOCRIT 33.7 % (35.0-45.0); LYMPHOCYTES # (AUTO) 115.8 X10'3 (1.1-4.8); LYMPHOCYTES % (AUTO) 87.9 % (21-51); MEAN CORPUSCULAR HEMOGLOBIN 27.4 PG (27.0-31.0); MEAN CORPUSCULAR HGB CONC 30.6 g/dL (33.0-36.5); MEAN PLATELET VOLUME 6.5 FL (7.4-10.4); MONOCYTES # (AUTO) 0.7 X10'3 (0-0.9); NEUTROPHILS # (AUTO) 14.5 X10'3 (1.8-7.7); PLATELET COUNT 258 X10'3 (140-440); RED BLOOD COUNT 3.77 X10'6 (4.20-5.60); RED CELL DISTRIBUTION WIDTH 15.7 % (11.5-14.5)
[2020-11-26 10:16] LABS: WHITE BLOOD COUNT 131.9 X10'3 (4.5-11.0)
--- NOTE | 2020-11-26 10:18 | NUR ---
PAGER ID: [phone] MESSAGE: [phone], Lindsay critical WBC of 131.9. She has been critically high her entire admission. Deepika [phone]
[2020-11-26 11:19] VITALS: BP 89/38
[2020-11-26 11:32] VITALS: BP 95/44
[2020-11-26 11:32] LABS: PLATELET ESTIMATE NORMAL; TOTAL CELLS COUNTED 200
[2020-11-26 11:33] LABS: HYPOCHROMASIA 1+; POIKILOCYTOSIS FEW; SCHISTOCYTES FEW; TEAR DROP CELLS FEW
[2020-11-26 11:34] LABS: ELLIPTOCYTES FEW; SMUDGE CELLS 3+
[2020-11-26] MEDS: bisacodyl 10mg suppository rectal RC STA ×2 (12:51→13:33)
--- NOTE | 2020-11-26 13:15 | NUR ---
Spoke with Dr. Barone regarding patients bowel status, milk of magnesia and colace given this morning with no changes. Suppository ordered and orders received for lactulose if needed. Also spoke with geriatric physician regarding nutrition status. Changed to ensure enlive and they will also send shakes to match caloric needs.
[2020-11-26] MEDS: lactose-reduced food (Ensure Enlive) - 237ml bottle PO SCH ×2 (13:27→19:28)
[2020-11-26] MEDS ORDERED: bisacodyl 10mg suppository rectal RC STA (13:38)
--- NOTE | 2020-11-26 14:04 | NUR ---
Reassessment: Pt PO remains poor mostly liquids only past 3.5 days w/ two outlier meals otherwise not meeting needs. Pt is drinking Ensure High Proteins; DENICE d/w RN regarding ONS change to Ensure Enlive TIDWM to optimize kcals and diet liberalization to regular if MD agreeable. Will send smoothie WS as well for additional protein/kcals; dietary notified. Noted pt diet now regular and Ensure Enlive TIDWM ordered in EMR. LBM 11/17 per EMR w/ routine colace started this AM s/p one time MoM; DENICE d/w RN regarding additional bowel care if MD agreeable given constipation. RN reports pt son concerned w/ PO intake since only drinking ensures/liquids given respiratory status offering to bring in outside ensures/liquid kcals. RD d/w RN will be able to meet pt estimated needs w/ new ONS and liquid kcals intake though son welcome to bring in outside additional kcals if pt will consume. Will continue to monitor. Rec: 1. continue regular diet; smoothie WS; encourage PO 2. Ensure Enlive TIDWM per MD; encourage PO 3. routine bowel care; 9 days constipation 4. scaled wt this admit; subsequent weekly wts Addendum: 11/26/20 at [address] Amended: Links added.
[2020-11-26] MEDS ORDERED: magnesium hydroxide 30ml (MOM) UD suspension PO PRN (14:25)
[2020-11-26] MEDS: bisacodyl 10mg suppository rectal RC PRN (14:33)
[2020-11-26] MEDS ORDERED: lactulose 20gm/30ml cup PO PRN (14:55)
--- NOTE | 2020-11-26 15:59 | NUR ---
Patient successfully had a bm after suppository administration. Also helped patient to sit up in bed in high fowlers position. Patients bed mobility is good. Sp02 at this time sitting in high fowlers 92%. Also helped to drink ensure enlive, patient drank 100% of this.
--- NOTE | 2020-11-26 18:12 | NUR ---
Problems reprioritized. Patient report given, questions answered & plan of care reviewed with Fabienne SORTO.
[2020-11-26 22:00] VITALS: BP 103/48
[2020-11-27] VITALS (8 sets, daily range): BP systolic 90–116; BP diastolic 25–55
[2020-11-27] MEDS: acetaminophen 325mg tablet PO PRN ×2 (01:38→08:04)
[2020-11-27] MEDS ORDERED: normal saline 250ml IV soln 250 ML IV ONE (05:20)
--- NOTE | 2020-11-27 05:43 | NUR ---
Pt b/p was 90/25 and 85/38 when checked again. Sent page to Dr Meza who ordered 250 NS bolus.
--- NOTE | 2020-11-27 06:15 | NUR ---
Patient in room ORTHO 4013. I have received report from Fabienne SORTO and had the opportunity to ask questions and assume patient care.
[2020-11-27] MEDS: enoxaparin 50mg/0.5ml (from 3ml vial) syringe SUBCUT SCH ×2 (07:06→19:22)
[2020-11-27] MEDS: dexamethasone 4mg/ml inj IV SCH (07:06)
--- NOTE | 2020-11-27 07:12 | NUR ---
PAGER ID: [phone] MESSAGE: [id number] AND [id number], Patients are both desatturating this morning into low 80s and taking a long time to recover, 13b needed to be turned up on her high flow. Can i get a blood gas and chest x ray for both of them please? geovani [phone]
--- NOTE | 2020-11-27 07:22 | NUR ---
Patient having a hard time oxygenating this morning, she is visably tired and moaning and stating she is "over this shit". Assisted patient into prone position and she is now saturating in the high 80s
--- NOTE | 2020-11-27 07:32 | NUR ---
Spoke with Dr. Barone about patients status, in agreement with ABG and chest xray. Both ordered now he stated that he will call the son to update on patient status.
[2020-11-27 07:52] LABS: BASOPHILS # (AUTO) 0.3 X10'3 (0-0.2); BASOPHILS % (AUTO) 0.3 % (0-1); EOSINOPHILS # (AUTO) 0.1 X10'3 (0-0.9); EOSINOPHILS % (AUTO) 0.1 % (0-6); HEMATOCRIT 30.6 % (35.0-45.0); HEMOGLOBIN 9.5 g/dl (12.0-16.0); LYMPHOCYTES # (AUTO) 85.3 X10'3 (1.1-4.8); LYMPHOCYTES % (AUTO) 81.7 % (21-51); MEAN CORPUSCULAR HEMOGLOBIN 27.5 PG (27.0-31.0); MEAN CORPUSCULAR HGB CONC 30.9 g/dL (33.0-36.5); MEAN CORPUSCULAR VOLUME 89.2 FL (78-98); MEAN PLATELET VOLUME 6.9 FL (7.4-10.4); MONOCYTES % (AUTO) 1.9 % (2-12); NEUTROPHILS # (AUTO) 16.7 X10'3 (1.8-7.7); PLATELET COUNT 217 X10'3 (140-440); RED BLOOD COUNT 3.44 X10'6 (4.20-5.60); RED CELL DISTRIBUTION WIDTH 15.4 % (11.5-14.5)
[2020-11-27 07:58] LABS: WHITE BLOOD COUNT 104.4 X10'3 (4.5-11.0)
--- NOTE | 2020-11-27 07:58 | NUR ---
PAGER ID: [phone] MESSAGE: [phone] Lindsay critical wbc 104.4 just fyi :) geovani [phone]
[2020-11-27] MEDS: lactose-reduced food (Ensure Enlive) - 237ml bottle PO SCH ×3 (08:00→18:00)
[2020-11-27] MEDS: docusate sod 100mg capsule PO SCH ×2 (08:00→19:23)
[2020-11-27] MEDS: K and/or MAG REPLACEMENT MC SCH ×2 (08:00→19:23)
--- NOTE | 2020-11-27 08:02 | NUR ---
PAGER ID: [phone] MESSAGE: [phone], Lindsay, patient is febrile, hypotensive and tachycardic. Do you want a lactic and blood cultures??? geovani [phone]
--- NOTE | 2020-11-27 08:29 | NUR ---
Tylenol given for fever of 100 axillary, patient also was febrile last night. Paged hospiatlist with concerns of possible sepsis, no response at this time
--- NOTE | 2020-11-27 08:39 | NUR ---
Discussed with Dr. Barone, blood cultures and lactic ordered.
[2020-11-27 09:15] LABS: ALANINE AMINOTRANSFERASE 84 U/L (12-78); ALBUMIN 1.9 G/DL (3.4-5.0); ALBUMIN/GLOBULIN RATIO 0.7 (1.1-1.5); ALKALINE PHOSPHATASE 152 IU/L (46-116); ANION GAP 8 (8-16); ASPARTATE AMINO TRANSFERASE 56 U/L (10-37); BILIRUBIN,TOTAL 0.7 MG/DL (0.1-1.0); BLOOD UREA NITROGEN 22 MG/DL (7-18); CHLORIDE 101 MMOL/L (99-107); CREATININE 0.71 MG/DL (0.40-0.90); GLUCOSE 89 MG/DL (70-104); POTASSIUM 4.6 MMOL/L (3.5-5.1); SODIUM 138 MMOL/L (135-145); TOTAL PROTEIN 4.8 G/DL (6.4-8.2); eGFR 81 ML/MIN
--- NOTE | 2020-11-27 09:18 | NUR ---
Blood cultures, chest x ray done
[2020-11-27 09:22] LABS: PLATELET ESTIMATE NORMAL; TOTAL CELLS COUNTED 100
[2020-11-27 09:24] LABS: SCHISTOCYTES FEW
[2020-11-27 09:26] LABS: BURR CELLS FEW
[2020-11-27 09:27] LABS: ELLIPTOCYTES FEW; SMUDGE CELLS 3+; TEAR DROP CELLS FEW
--- NOTE | 2020-11-27 09:39 | NUR ---
Patient turned up to 50 liters high flow, 100% fi02 with 15 liters nonrebreather as well.
[2020-11-27 09:52] LABS: D-DIMER 7.45 MG/L FEU (0-0.50)
--- NOTE | 2020-11-27 10:40 | NUR ---
Still proned, tolerating well sp02 94%
--- NOTE | 2020-11-27 11:21 | NUR ---
Md in to speak with patient regarding code status as she is alert and oriented and able to have that conversation. Patients son wants her to be a full code and all measures taken, patient in agreement with this also. Patient is stable on 65 liters 100% fi02. SP02 at this time is 93%.
--- NOTE | 2020-11-27 11:30 | NUR ---
Spoke to son and gave update on status.
[2020-11-27 12:26] LABS: ABG BASE EXCESS 4.6 mmol/L (-2.0-2.0); ABG HCO3 28.1 mmol/L (22.0-26.0); ABG OXYGEN SATURATION 95.2 % (94-97); ABG PCO2 (T) 37.5 mmHg (32.0-45.0); ABG PO2 (T) 75.7 mmHg (75.0-100.0); ALLEN'S TEST POSITIVE; FCOHb 0.5 % (0.0-3.9); FLOW 50 L/min; FO2Hb 94.7 % (94-97); TOTAL HEMOGLOBIN 10.6 G/dl (12.0-16.0)
--- NOTE | 2020-11-27 15:48 | NUR ---
Patient has been prone all day, doing well with this and after respiratory increased her oxygen to 50 liters on high flow.
--- NOTE | 2020-11-27 18:20 | NUR ---
Problems reprioritized. Patient report given, questions answered & plan of care reviewed with Fabienne SORTO.
[2020-11-28 02:00] VITALS: BP 124/59
[2020-11-28 06:20] VITALS: BP 98/47
--- NOTE | 2020-11-28 06:20 | NUR ---
Patient in room ORTHO 4013. I have received report from Fabienne SORTO and had the opportunity to ask questions and assume patient care.
[2020-11-28] MEDS: enoxaparin 50mg/0.5ml (from 3ml vial) syringe SUBCUT SCH ×2 (07:30→19:56)
[2020-11-28] MEDS: dexamethasone 4mg/ml inj IV SCH (07:30)
[2020-11-28] MEDS: docusate sod 100mg capsule PO SCH ×2 (08:00→19:56)
[2020-11-28] MEDS: K and/or MAG REPLACEMENT MC SCH ×2 (08:00→19:16)
[2020-11-28 08:20] LABS: BASOPHILS # (AUTO) 0.1 X10'3 (0-0.2); BASOPHILS % (AUTO) 0.1 % (0-1); EOSINOPHILS # (AUTO) 0.1 X10'3 (0-0.9); EOSINOPHILS % (AUTO) 0.1 % (0-6); HEMATOCRIT 29.5 % (35.0-45.0); LYMPHOCYTES # (AUTO) 70.4 X10'3 (1.1-4.8); LYMPHOCYTES % (AUTO) 78.5 % (21-51); MEAN CORPUSCULAR HEMOGLOBIN 27.5 PG (27.0-31.0); MEAN CORPUSCULAR HGB CONC 30.7 g/dL (33.0-36.5); MEAN CORPUSCULAR VOLUME 89.7 FL (78-98); MEAN PLATELET VOLUME 6.9 FL (7.4-10.4); MONOCYTES % (AUTO) 2.3 % (2-12); NEUTROPHILS # (AUTO) 17.1 X10'3 (1.8-7.7); PLATELET COUNT 218 X10'3 (140-440); RED BLOOD COUNT 3.28 X10'6 (4.20-5.60); RED CELL DISTRIBUTION WIDTH 15.8 % (11.5-14.5)
[2020-11-28 08:48] LABS: D-DIMER 6.36 MG/L FEU (0-0.50)
[2020-11-28 08:52] LABS: WHITE BLOOD COUNT 89.7 X10'3 (4.5-11.0)
[2020-11-28] MEDS: lactose-reduced food (Ensure Enlive) - 237ml bottle PO SCH ×3 (08:55→18:00)
[2020-11-28 09:00] LABS: ALANINE AMINOTRANSFERASE 55 U/L (12-78); ALBUMIN 1.8 G/DL (3.4-5.0); ALBUMIN/GLOBULIN RATIO 0.5 (1.1-1.5); ALKALINE PHOSPHATASE 136 IU/L (46-116); ANION GAP 7 (8-16); ASPARTATE AMINO TRANSFERASE 41 U/L (10-37); BILIRUBIN,TOTAL 0.6 MG/DL (0.1-1.0); BLOOD UREA NITROGEN 17 MG/DL (7-18); BUN/CREATININE RATIO 29.3 (6.6-38.0); CALCIUM 8.5 MG/DL (8.5-10.1); CHLORIDE 102 MMOL/L (99-107); CREATININE 0.58 MG/DL (0.40-0.90); GLUCOSE 89 MG/DL (70-104); POTASSIUM 4.5 MMOL/L (3.5-5.1); SODIUM 137 MMOL/L (135-145); TOTAL CARBON DIOXIDE 27.6 MMOL/L (24-32); TOTAL PROTEIN 5.1 G/DL (6.4-8.2); eGFR > 90 ML/MIN
--- NOTE | 2020-11-28 09:52 | NUR ---
PAGER ID: [phone] MESSAGE: [phone], Lindsay blood pressure is 96/47 with a map of 56. [place] [phone]
[2020-11-28 10:26] VITALS: BP 96/47
[2020-11-28 10:36] LABS: PLATELET ESTIMATE NORMAL; SMUDGE CELLS 3+; TOTAL CELLS COUNTED 100
[2020-11-28 10:37] LABS: BURR CELLS FEW; ELLIPTOCYTES FEW; SCHISTOCYTES FEW; TEAR DROP CELLS FEW
[2020-11-28 14:49] VITALS: BP 103/65
[2020-11-28 18:00] VITALS: BP 113/56
--- NOTE | 2020-11-28 18:16 | NUR ---
Problems reprioritized. Patient report given, questions answered & plan of care reviewed with Lexi SORTO.
--- NOTE | 2020-11-28 18:17 | NUR ---
Patient in room ORTHO 4013. I have received report from NOREEN Poe and had the opportunity to ask questions and assume patient care.
[2020-11-28] MEDS: guaiFENesin/DM 10ml UD oral syrup PO PRN (19:56)
[2020-11-28] MEDS: LORazepam 0.5 MG tablet PO PRN (19:56)
[2020-11-28 22:00] VITALS: BP 103/53
[2020-11-29] MEDS: guaiFENesin/DM 10ml UD oral syrup PO PRN ×3 (02:39→20:04)
--- NOTE | 2020-11-29 06:36 | NUR ---
Problems reprioritized. Patient report given, questions answered & plan of care reviewed with NOREEN Gale.
[2020-11-29 06:53] VITALS: BP 91/45
[2020-11-29] MEDS: lactose-reduced food (Ensure Enlive) - 237ml bottle PO SCH ×3 (08:00→17:20)
[2020-11-29] MEDS: dexamethasone 4mg/ml inj IV SCH (09:05)
[2020-11-29] MEDS: docusate sod 100mg capsule PO SCH ×2 (09:05→20:04)
[2020-11-29] MEDS: K and/or MAG REPLACEMENT MC SCH ×2 (09:06→20:00)
[2020-11-29] MEDS: enoxaparin 50mg/0.5ml (from 3ml vial) syringe SUBCUT SCH ×2 (09:06→20:04)
--- NOTE | 2020-11-29 09:37 | NUR ---
f/u 11/29: Pt continues w/ high oxygen requirement, 50L via HFNC. Despite this, pt is able to eat well since advanced to Regular diet, avg 79% x 9 meals and 100% of ONS per documentation since last RD assessment meeting needs. LBM 11/26 w/ routine and PRN bowel care available. No new nutrition intervention implemented at this time. Rec: 1. continue regular diet; smoothie WS; encourage PO 2. Ensure Enlive TIDWM per MD; encourage PO 3. routine bowel care 4. scaled wt this admit; subsequent weekly wts Addendum: 11/29/20 at [address] Amended: Links added.
[2020-11-29 10:36] LABS: BASOPHILS # (AUTO) 0.1 X10'3 (0-0.2); BASOPHILS % (AUTO) 0.1 % (0-1); PLATELET COUNT 319 X10'3 (140-440); RED CELL DISTRIBUTION WIDTH 15.8 % (11.5-14.5)
[2020-11-29 10:38] LABS: D-DIMER 7.71 MG/L FEU (0-0.50)
[2020-11-29 10:40] LABS: EOSINOPHILS # (AUTO) 0.1 X10'3 (0-0.9); EOSINOPHILS % (AUTO) 0.1 % (0-6); HEMATOCRIT 30.5 % (35.0-45.0); HEMOGLOBIN 9.2 g/dl (12.0-16.0); LYMPHOCYTES # (AUTO) 95.6 X10'3 (1.1-4.8); LYMPHOCYTES % (AUTO) 77.5 % (21-51); MEAN CORPUSCULAR HEMOGLOBIN 27.1 PG (27.0-31.0); MEAN CORPUSCULAR HGB CONC 30.1 g/dL (33.0-36.5); MEAN CORPUSCULAR VOLUME 90.1 FL (78-98); MEAN PLATELET VOLUME 7.3 FL (7.4-10.4); MONOCYTES # (AUTO) 2.7 X10'3 (0-0.9); MONOCYTES % (AUTO) 2.2 % (2-12); NEUTROPHILS # (AUTO) 24.8 X10'3 (1.8-7.7); NEUTROPHILS % (AUTO) 20.1 % (42-75); RED BLOOD COUNT 3.38 X10'6 (4.20-5.60)
[2020-11-29 10:50] VITALS: BP 110/65
[2020-11-29 10:53] LABS: WHITE BLOOD COUNT 123.4 X10'3 (4.5-11.0)
[2020-11-29 10:57] LABS: ANION GAP 7 (8-16); BLOOD UREA NITROGEN 19 MG/DL (7-18); BUN/CREATININE RATIO 23.5 (6.6-38.0); CALCIUM 8.6 MG/DL (8.5-10.1); CHLORIDE 99 MMOL/L (99-107); CREATININE 0.81 MG/DL (0.40-0.90); GLUCOSE 128 MG/DL (70-104); POTASSIUM 4.4 MMOL/L (3.5-5.1); SODIUM 136 MMOL/L (135-145); TOTAL CARBON DIOXIDE 30.3 MMOL/L (24-32); eGFR 69 ML/MIN
--- NOTE | 2020-11-29 11:19 | NUR ---
to Dr. Barone RE: Marietta Montoya room 8401S critical WBC 123.4 today Baljinder SORTO [phone]
[2020-11-29 12:20] LABS: PLATELET ESTIMATE NORMAL; SMUDGE CELLS 3+; TOTAL CELLS COUNTED 100
[2020-11-29 12:21] LABS: ANISOCYTOSIS 1+; SCHISTOCYTES FEW
[2020-11-29 12:22] LABS: ELLIPTOCYTES FEW
[2020-11-29] MEDS: LORazepam 0.5 MG tablet PO PRN ×2 (14:01→20:04)
[2020-11-29 15:29] VITALS: BP 107/68
[2020-11-29 18:00] VITALS: BP 118/88
--- NOTE | 2020-11-29 18:48 | NUR ---
Patient in room ORTHO 4013. I have received report from NOREEN Gale and had the opportunity to ask questions and assume patient care.
[2020-11-29 22:00] VITALS: BP 96/57
[2020-11-30 02:00] VITALS: BP 88/52
--- NOTE | 2020-11-30 02:00 | NUR ---
also wearing a 15liter NRB mask Addendum: 11/30/20 at 0244 by Chrissy Valentine RN Amended: Links added.
[2020-11-30 06:00] VITALS: BP 114/63
[2020-11-30] MEDS: LORazepam 0.5 MG tablet PO PRN ×2 (06:01→19:57)
--- NOTE | 2020-11-30 06:33 | NUR ---
Problems reprioritized. Patient report given, questions answered & plan of care reviewed with NOREEN Moreno and NOREEN Newberry.
[2020-11-30] MEDS: docusate sod 100mg capsule PO SCH ×2 (08:00→19:59)
[2020-11-30] MEDS: K and/or MAG REPLACEMENT MC SCH ×2 (08:00→20:00)
[2020-11-30] MEDS: lactose-reduced food (Ensure Enlive) - 237ml bottle PO SCH ×4 (08:00→18:34)
[2020-11-30 09:06] LABS: HEMATOCRIT 30.7 % (35.0-45.0); HEMOGLOBIN 9.3 g/dl (12.0-16.0); RED BLOOD COUNT 3.41 X10'6 (4.20-5.60)
[2020-11-30 09:11] LABS: ANION GAP 6 (8-16); BASOPHILS # (AUTO) 0.2 X10'3 (0-0.2); BASOPHILS % (AUTO) 0.1 % (0-1); BLOOD UREA NITROGEN 20 MG/DL (7-18); BUN/CREATININE RATIO 30.3 (6.6-38.0); CALCIUM 8.8 MG/DL (8.5-10.1); CHLORIDE 102 MMOL/L (99-107); CREATININE 0.66 MG/DL (0.40-0.90); EOSINOPHILS # (AUTO) 0.1 X10'3 (0-0.9); EOSINOPHILS % (AUTO) 0.1 % (0-6); GLUCOSE 95 MG/DL (70-104); LYMPHOCYTES # (AUTO) 88.3 X10'3 (1.1-4.8); LYMPHOCYTES % (AUTO) 78.5 % (21-51); MEAN CORPUSCULAR HEMOGLOBIN 27.3 PG (27.0-31.0); MEAN CORPUSCULAR HGB CONC 30.4 g/dL (33.0-36.5); MEAN CORPUSCULAR VOLUME 89.9 FL (78-98); MEAN PLATELET VOLUME 7.1 FL (7.4-10.4); MONOCYTES # (AUTO) 1.7 X10'3 (0-0.9); MONOCYTES % (AUTO) 1.5 % (2-12); NEUTROPHILS # (AUTO) 22.3 X10'3 (1.8-7.7); NEUTROPHILS % (AUTO) 19.8 % (42-75); PLATELET COUNT 354 X10'3 (140-440); POTASSIUM 4.3 MMOL/L (3.5-5.1); RED CELL DISTRIBUTION WIDTH 15.6 % (11.5-14.5); SODIUM 142 MMOL/L (135-145); TOTAL CARBON DIOXIDE 34.4 MMOL/L (24-32); eGFR 88 ML/MIN
[2020-11-30 09:20] LABS: WHITE BLOOD COUNT 112.6 X10'3 (4.5-11.0)
[2020-11-30 09:55] LABS: PLATELET ESTIMATE NORMAL; SMUDGE CELLS 3+; TOTAL CELLS COUNTED 100
[2020-11-30 09:56] LABS: ANISOCYTOSIS FEW; ELLIPTOCYTES FEW; HYPOCHROMASIA 1+; SCHISTOCYTES FEW; TEAR DROP CELLS FEW
[2020-11-30] MEDS: dexamethasone 4mg/ml inj IV SCH (09:58)
[2020-11-30] MEDS: enoxaparin 50mg/0.5ml (from 3ml vial) syringe SUBCUT SCH ×2 (09:59→19:57)
[2020-11-30 10:00] VITALS: BP 86/44
--- NOTE | 2020-11-30 13:05 | NUR ---
SW Dr. Tej Bailey regarding code status. Dr. Bailey stated he would order LIMITED CODE STATUS with no intubation and no chest compressions as per patient's son Eduardo.
[2020-11-30 14:00] VITALS: BP_SYST 103; BP_SYST 137; BP_DIAS 61; BP_DIAS 84
[2020-11-30] MEDS ORDERED: acetaminophen 120MG suppository, rectal RC PRN (14:30)
[2020-11-30] MEDS ORDERED: acetaminophen 650mg rectal suppository RC PRN (14:55)
--- NOTE | 2020-11-30 17:01 | NUR ---
PAGER ID: [phone] MESSAGE: Lexis [phone] re: code status for Marietta Montoya in 3915I. please call
[2020-11-30 18:00] VITALS: BP 107/66
--- NOTE | 2020-11-30 18:47 | NUR ---
Problems reprioritized. Patient report given, questions answered & plan of care reviewed with Brea SORTO.
[2020-11-30] MEDS: dexamethasone inj 4 MG in normal saline 50ml IV soln 50 ML IV SCH (19:57)
[2020-11-30] MEDS: guaiFENesin/DM 10ml UD oral syrup PO PRN ×2 (19:59→23:47)
[2020-11-30] MEDS ORDERED: dexamethasone 4mg/ml inj IV SCH (20:00)
[2020-11-30 22:00] VITALS: BP 94/56
[2020-11-30 22:15] LABS: ABG BASE EXCESS 8.4 mmol/L (-2.0-2.0); ABG HCO3 33.1 mmol/L (22.0-26.0); ABG OXYGEN SATURATION 80.2 % (94-97); ABG PCO2 (T) 46.4 mmHg (32.0-45.0); ABG PO2 (T) 43.1 mmHg (75.0-100.0); FCOHb 0.5 % (0.0-3.9); FLOW 60 L/min; FO2Hb 79.8 % (94-97); PATIENT TEMPERATURE 36.9; TOTAL HEMOGLOBIN 10.1 G/dl (12.0-16.0)
--- NOTE | 2020-11-30 22:30 | NUR ---
notified son, Eduardo that pt on cpap at this time. seeing if patient will be able to tolerate mask tonight and re-evaulate in am. pt seems anxious and does not feel comfortable in the bask. reassurance given.
--- NOTE | 2020-11-30 23:30 | NUR ---
decreased pressure on cpap to 12 b/c pt felt like "my whole body is jerking with this." pt holding sats at 92% on pressure 12. will continue to monitor. Yesenia from resp will monitor settings, can call if pt unable to tolerate.
[2020-11-30] MEDS: acetaminophen 325mg tablet PO PRN (23:47)
[2020-12-01 02:00] VITALS: BP 89/52
--- NOTE | 2020-12-01 05:56 | NUR ---
HAS BEEN RESTING COMFORTABLY SINCE BEING PLACED ON CPAP AND MAINTAINING SATS 93% OR GREATER. RESP RATE STILL SOMEWHAT TACHY AT 32 BUT HAS SLOWED FROM 44. HR LOW 100'S . REPORT TO EARLY SHIFT RN'S
--- NOTE | 2020-12-01 06:27 | NUR ---
REPORT TO STEFFEN WITH VERBAL REPORT.
--- NOTE | 2020-12-01 06:33 | NUR ---
Patient in room ORTHO 4013. I have received report from Brea SORTO and had the opportunity to ask questions and assume patient care.
[2020-12-01 06:34] VITALS: BP 109/58
--- NOTE | 2020-12-01 06:43 | NUR ---
Patient in room ORTHO 4013. I have received report from AYAAN SORTO and had the opportunity to ask questions and assume patient care.
[2020-12-01] MEDS: docusate sod 100mg capsule PO SCH ×6 (07:56→20:41)
[2020-12-01] MEDS: guaiFENesin/DM 10ml UD oral syrup PO PRN ×3 (07:56→22:50)
[2020-12-01] MEDS: acetaminophen 325mg tablet PO PRN ×2 (07:57→22:51)
[2020-12-01] MEDS: dexamethasone inj 4 MG in normal saline 50ml IV soln 50 ML IV SCH ×2 (07:57→20:40)
[2020-12-01] MEDS: enoxaparin 50mg/0.5ml (from 3ml vial) syringe SUBCUT SCH ×2 (07:58→20:41)
[2020-12-01] MEDS: K and/or MAG REPLACEMENT MC SCH ×2 (08:00→20:00)
[2020-12-01] MEDS: lactose-reduced food (Ensure Enlive) - 237ml bottle PO SCH ×3 (08:00→18:06)
[2020-12-01] MEDS: albuterol 2.5 MG/3 ML nebule NEB PRN ×3 (09:06→17:00)
[2020-12-01 10:00] VITALS: BP 105/55
[2020-12-01 11:39] LABS: EOSINOPHILS # (AUTO) 0.1 X10'3 (0-0.9); EOSINOPHILS % (AUTO) 0.1 % (0-6); MONOCYTES # (AUTO) 5.6 X10'3 (0-0.9); RED CELL DISTRIBUTION WIDTH 15.7 % (11.5-14.5)
[2020-12-01 11:44] LABS: BASOPHILS # (AUTO) 0.7 X10'3 (0-0.2); BASOPHILS % (AUTO) 0.6 % (0-1); HEMATOCRIT 30.6 % (35.0-45.0); HEMOGLOBIN 9.3 g/dl (12.0-16.0); LYMPHOCYTES # (AUTO) 86.7 X10'3 (1.1-4.8); LYMPHOCYTES % (AUTO) 72.5 % (21-51); MEAN CORPUSCULAR HEMOGLOBIN 27.5 PG (27.0-31.0); MEAN CORPUSCULAR HGB CONC 30.5 g/dL (33.0-36.5); MEAN CORPUSCULAR VOLUME 90.2 FL (78-98); MEAN PLATELET VOLUME 7.2 FL (7.4-10.4); MONOCYTES % (AUTO) 4.7 % (2-12); NEUTROPHILS # (AUTO) 26.3 X10'3 (1.8-7.7); NEUTROPHILS % (AUTO) 22.1 % (42-75); PLATELET COUNT 368 X10'3 (140-440); RED BLOOD COUNT 3.39 X10'6 (4.20-5.60)
[2020-12-01 11:48] LABS: WHITE BLOOD COUNT 119.4 X10'3 (4.5-11.0)
[2020-12-01 11:56] LABS: D-DIMER 3.18 MG/L FEU (0-0.50)
[2020-12-01 12:00] LABS: ALBUMIN 2.1 G/DL (3.4-5.0); ANION GAP 8 (8-16); C-REACTIVE PROTEIN 9.07 MG/DL (0.0-0.5); CALCIUM 9.1 MG/DL (8.5-10.1); CHLORIDE 103 MMOL/L (99-107); GLUCOSE 108 MG/DL (70-104); POTASSIUM 4.7 MMOL/L (3.5-5.1); SODIUM 144 MMOL/L (135-145); TOTAL CARBON DIOXIDE 32.6 MMOL/L (24-32)
--- NOTE | 2020-12-01 12:03 | NUR ---
PAGED DR GRIMES RE: PAGER ID: [phone] MESSAGE: ISABEL LANCE. WBC 119. VYHOQ [id number]
[2020-12-01 12:07] LABS: BLOOD UREA NITROGEN 27 MG/DL (7-18); BUN/CREATININE RATIO 47.4 (6.6-38.0); CREATININE 0.57 MG/DL (0.40-0.90); eGFR > 90 ML/MIN
[2020-12-01 12:34] LABS: ANISOCYTOSIS 1+; HYPOCHROMASIA 1+; PLATELET ESTIMATE NORMAL; TOTAL CELLS COUNTED 100
[2020-12-01 12:35] LABS: ELLIPTOCYTES FEW; SMUDGE CELLS 3+; TEAR DROP CELLS FEW
[2020-12-01 14:00] VITALS: BP 101/53
[2020-12-01 18:00] VITALS: BP 111/59
--- NOTE | 2020-12-01 18:31 | NUR ---
Problems reprioritized. Patient report given, questions answered & plan of care reviewed with Brea SORTO.
[2020-12-01 22:00] VITALS: BP 113/37
[2020-12-02 02:00] VITALS: BP 98/53
--- NOTE | 2020-12-02 02:26 | NUR ---
2014 PATIENT WAS ABLE TO DRINK FLUIDS IN SHORT INTERVALS AND SATS MAINTAINED ABOVE 90%. WASHED HER FACE ALSO, AND NEEDED A FEW MINS TO RECOVER HER SATURATION LEVEL DROPPED TO 86%. FINISHED HER ENSURE ALSO. REPOSITIONED ONTO L SIDE AND PATIENT STATED COMFORT.
--- NOTE | 2020-12-02 06:13 | NUR ---
RESPIRATORY THERAPY ATTEMPTED TO PLACE PATIENT BACK ONTO HIGH FLOW PATIENT IS C/O PAIN FROM MASK TO HER NOSE. IMMEDIATELY AFTER PUTTING HER BACK ON HIGH FLOW, PATIENT'S SATS DROPPED TO 65% PATIENT BACK ONTO CPAP AT 12 AND 90% AND SATURATION LEVELS ARE 93-94% REPORT GIVEN TO ANNEL SORTO
--- NOTE | 2020-12-02 06:37 | NUR ---
Patient in room ORTHO 4013. I have received report from Brea SORTO and had the opportunity to ask questions and assume patient care.
[2020-12-02 06:58] VITALS: BP 104/53
[2020-12-02] MEDS: K and/or MAG REPLACEMENT MC SCH ×2 (08:00→20:00)
[2020-12-02] MEDS: lactose-reduced food (Ensure Enlive) - 237ml bottle PO SCH ×3 (08:00→18:00)
[2020-12-02] MEDS: dexamethasone inj 4 MG in normal saline 50ml IV soln 50 ML IV SCH ×2 (08:16→21:30)
[2020-12-02 08:32] LABS: EOSINOPHILS # (AUTO) 0.2 X10'3 (0-0.9); EOSINOPHILS % (AUTO) 0.2 % (0-6); HEMOGLOBIN 9.9 g/dl (12.0-16.0)
[2020-12-02 08:36] LABS: BASOPHILS # (AUTO) 0.5 X10'3 (0-0.2); BASOPHILS % (AUTO) 0.4 % (0-1); HEMATOCRIT 32.9 % (35.0-45.0); LYMPHOCYTES # (AUTO) 80.2 X10'3 (1.1-4.8); LYMPHOCYTES % (AUTO) 77.4 % (21-51); MEAN CORPUSCULAR HEMOGLOBIN 27.1 PG (27.0-31.0); MEAN CORPUSCULAR HGB CONC 30.1 g/dL (33.0-36.5); MEAN CORPUSCULAR VOLUME 90.2 FL (78-98); MEAN PLATELET VOLUME 6.8 FL (7.4-10.4); MONOCYTES # (AUTO) 4.4 X10'3 (0-0.9); MONOCYTES % (AUTO) 4.2 % (2-12); NEUTROPHILS # (AUTO) 18.4 X10'3 (1.8-7.7); NEUTROPHILS % (AUTO) 17.8 % (42-75); PLATELET COUNT 384 X10'3 (140-440); RED BLOOD COUNT 3.65 X10'6 (4.20-5.60)
[2020-12-02 08:41] LABS: WHITE BLOOD COUNT 103.7 X10'3 (4.5-11.0)
[2020-12-02 08:58] LABS: ALANINE AMINOTRANSFERASE 142 U/L (12-78); ALBUMIN 2.2 G/DL (3.4-5.0); ALBUMIN/GLOBULIN RATIO 0.6 (1.1-1.5); ALKALINE PHOSPHATASE 185 IU/L (46-116); ANION GAP 5 (8-16); ASPARTATE AMINO TRANSFERASE 48 U/L (10-37); BILIRUBIN,TOTAL 0.5 MG/DL (0.1-1.0); BLOOD UREA NITROGEN 27 MG/DL (7-18); BUN/CREATININE RATIO 44.3 (6.6-38.0); C-REACTIVE PROTEIN 5.37 MG/DL (0.0-0.5); CALCIUM 9.2 MG/DL (8.5-10.1); CHLORIDE 105 MMOL/L (99-107); CREATININE 0.61 MG/DL (0.40-0.90); GLUCOSE 94 MG/DL (70-104); POTASSIUM 4.1 MMOL/L (3.5-5.1); SODIUM 145 MMOL/L (135-145); TOTAL CARBON DIOXIDE 34.8 MMOL/L (24-32); TOTAL PROTEIN 6.2 G/DL (6.4-8.2); eGFR > 90 ML/MIN
[2020-12-02 09:55] LABS: ANISOCYTOSIS 1+; PLATELET ESTIMATE NORMAL; TEAR DROP CELLS FEW; TOTAL CELLS COUNTED 100
[2020-12-02 09:56] LABS: POLYCHROMASIA FEW; SMUDGE CELLS 3+
[2020-12-02] MEDS: enoxaparin 50mg/0.5ml (from 3ml vial) syringe SUBCUT SCH ×2 (10:06→21:31)
[2020-12-02 10:46] VITALS: BP 106/50
[2020-12-02] MEDS ORDERED: morphine 2 MG/ML inj. syringe IV PRN (10:50)
[2020-12-02] MEDS: albuterol 2.5 MG/3 ML nebule NEB PRN ×2 (11:23→20:07)
[2020-12-02] MEDS: LORazepam 0.5 MG tablet PO PRN ×2 (13:12→21:30)
--- NOTE | 2020-12-02 13:33 | NUR ---
Gave patient ativan, very restless and fighting with 02 mask, unable to get comfortable.
--- NOTE | 2020-12-02 16:49 | NUR ---
Patient sitting up in recliner chair, has been sitting up since working with physical therapy.
[2020-12-02 18:00] VITALS: BP 96/48
--- NOTE | 2020-12-02 18:43 | NUR ---
Problems reprioritized. Patient report given, questions answered & plan of care reviewed with Brea SORTO.
[2020-12-02 22:00] VITALS: BP 111/66
--- NOTE | 2020-12-03 06:05 | NUR ---
Problems reprioritized. Patient report given, questions answered & plan of care reviewed with GABINO SORTO.
[2020-12-03 06:40] VITALS: BP 98/64
[2020-12-03] MEDS: lactose-reduced food (Ensure Enlive) - 237ml bottle PO SCH ×3 (08:00→18:00)
[2020-12-03] MEDS: K and/or MAG REPLACEMENT MC SCH ×2 (08:42→19:31)
[2020-12-03] MEDS: docusate sod 100mg capsule PO SCH ×2 (09:06→19:09)
[2020-12-03] MEDS: dexamethasone inj 4 MG in normal saline 50ml IV soln 50 ML IV SCH (09:12)
[2020-12-03 12:00] VITALS: BP 97/58
[2020-12-03] MEDS: enoxaparin 50mg/0.5ml (from 3ml vial) syringe SUBCUT SCH ×2 (12:27→19:09)
--- NOTE | 2020-12-03 14:19 | NUR ---
F/u 12/03: Pt PO significantly declined past 4 days 0% meals requiring Bipap per EMR. Fortunately, PO 100% Ensure Enlives still partially meeting needs. Noted no BM 7 days receiving routine colace w/ PRN MoM and lactulose available however not given. Would benefit from additional bowel care this admit. Constipation/respiratory status likely to impact PO. Will continue to monitor for further nutrition intervention needs. Rec: 1. continue regular diet; smoothie WS; encourage PO 2. Ensure Enlive TIDWM; encourage PO 3. routine bowel care; 7 days constipation 4. scaled wt this admit; subsequent weekly wts 5. IF PO meals remains poor consider supplemental post-pyloric EN to optimize nutrition status Addendum: 12/03/20 at [address] Amended: Links added.
--- NOTE | 2020-12-03 18:21 | NUR ---
Problems reprioritized. Patient report given, questions answered & plan of care reviewed with Kinjal SORTO.
[2020-12-03 22:00] VITALS: BP 105/60
[2020-12-03] MEDS: LORazepam 0.5 MG tablet PO PRN (23:07)
[2020-12-04 02:00] VITALS: BP 112/59
[2020-12-04 06:30] VITALS: BP 95/51
[2020-12-04] MEDS: K and/or MAG REPLACEMENT MC SCH ×2 (08:00→20:00)
[2020-12-04] MEDS: lactose-reduced food (Ensure Enlive) - 237ml bottle PO SCH ×3 (08:00→18:00)
[2020-12-04] MEDS: docusate sod 100mg capsule PO SCH ×2 (09:20→19:02)
[2020-12-04] MEDS: dexamethasone inj 4 MG in normal saline 50ml IV soln 50 ML IV SCH (09:20)
[2020-12-04 10:00] VITALS: BP 107/59
[2020-12-04] MEDS: enoxaparin 50mg/0.5ml (from 3ml vial) syringe SUBCUT SCH ×2 (10:18→19:02)
[2020-12-04] MEDS: LORazepam 0.5 MG tablet PO PRN (14:31)
[2020-12-04 15:07] LABS: D-DIMER 1.54 MG/L FEU (0-0.50)
[2020-12-04 15:16] VITALS: BP 110/58
[2020-12-04 18:00] VITALS: BP 107/59
--- NOTE | 2020-12-04 18:14 | NUR ---
Problems reprioritized. Patient report given, questions answered & plan of care reviewed with DAYANNA SORTO.
[2020-12-04 22:00] VITALS: BP 116/58
[2020-12-05] MEDS: LORazepam 0.5 MG tablet PO PRN ×2 (00:05→19:51)
[2020-12-05 02:00] VITALS: BP 87/51
[2020-12-05 06:22] VITALS: BP 133/57
--- NOTE | 2020-12-05 06:24 | NUR ---
Patient in room ORTHO 4013. I have received report from DAYANNA SORTO and had the opportunity to ask questions and assume patient care.
[2020-12-05] MEDS: K and/or MAG REPLACEMENT MC SCH ×2 (08:00→20:00)
[2020-12-05] MEDS: dexamethasone inj 4 MG in normal saline 50ml IV soln 50 ML IV SCH (08:38)
[2020-12-05] MEDS: enoxaparin 50mg/0.5ml (from 3ml vial) syringe SUBCUT SCH ×2 (08:39→19:53)
[2020-12-05] MEDS: docusate sod 100mg capsule PO SCH ×2 (08:39→19:51)
[2020-12-05] MEDS: lactose-reduced food (Ensure Enlive) - 237ml bottle PO SCH ×3 (08:39→18:37)
[2020-12-05] MEDS: albuterol 2.5 MG/3 ML nebule NEB PRN (09:18)
[2020-12-05 10:00] VITALS: BP 104/59
[2020-12-05 14:12] LABS: EOSINOPHILS # (AUTO) 0.1 X10'3 (0-0.9); EOSINOPHILS % (AUTO) 0.1 % (0-6); HEMOGLOBIN 8.3 g/dl (12.0-16.0); MONOCYTES # (AUTO) 2.6 X10'3 (0-0.9); MONOCYTES % (AUTO) 2.5 % (2-12)
[2020-12-05 14:16] LABS: ALBUMIN 2.1 G/DL (3.4-5.0); ANION GAP 5 (8-16); BLOOD UREA NITROGEN 21 MG/DL (7-18); BUN/CREATININE RATIO 34.4 (6.6-38.0); CALCIUM 8.4 MG/DL (8.5-10.1); CHLORIDE 100 MMOL/L (99-107); CREATININE 0.61 MG/DL (0.40-0.90); GLUCOSE 169 MG/DL (70-104); POTASSIUM 4.3 MMOL/L (3.5-5.1); SODIUM 139 MMOL/L (135-145); TOTAL CARBON DIOXIDE 34.1 MMOL/L (24-32); eGFR > 90 ML/MIN
[2020-12-05 14:19] LABS: BASOPHILS # (AUTO) 0.3 X10'3 (0-0.2); BASOPHILS % (AUTO) 0.3 % (0-1); HEMATOCRIT 27.3 % (35.0-45.0); LYMPHOCYTES # (AUTO) 72.9 X10'3 (1.1-4.8); LYMPHOCYTES % (AUTO) 70.2 % (21-51); MEAN CORPUSCULAR HEMOGLOBIN 27.2 PG (27.0-31.0); MEAN CORPUSCULAR HGB CONC 30.5 g/dL (33.0-36.5); MEAN CORPUSCULAR VOLUME 89.2 FL (78-98); MEAN PLATELET VOLUME 6.7 FL (7.4-10.4); NEUTROPHILS # (AUTO) 27.9 X10'3 (1.8-7.7); NEUTROPHILS % (AUTO) 26.9 % (42-75); PLATELET COUNT 367 X10'3 (140-440); RED BLOOD COUNT 3.06 X10'6 (4.20-5.60); RED CELL DISTRIBUTION WIDTH 15.9 % (11.5-14.5)
[2020-12-05 14:45] LABS: WHITE BLOOD COUNT 103.8 X10'3 (4.5-11.0)
[2020-12-05 15:10] VITALS: BP 112/65
[2020-12-05 15:10] LABS: TOTAL CELLS COUNTED 100
[2020-12-05 15:11] LABS: ELLIPTOCYTES FEW; PLATELET ESTIMATE NORMAL; POLYCHROMASIA FEW; SMUDGE CELLS 2+
[2020-12-05 15:12] LABS: SCHISTOCYTES FEW
[2020-12-05 18:00] VITALS: BP 107/63
[2020-12-05 22:00] VITALS: BP 106/53
[2020-12-06 02:00] VITALS: BP 100/51
[2020-12-06 06:00] VITALS: BP 110/62
--- NOTE | 2020-12-06 06:31 | NUR ---
Patient in room ORTHO 4013. I have received report from Lexi SORTO and had the opportunity to ask questions and assume patient care.
--- NOTE | 2020-12-06 06:35 | NUR ---
Problems reprioritized. Patient report given, questions answered & plan of care reviewed with NOREEN Newberry.
[2020-12-06] MEDS: lactose-reduced food (Ensure Enlive) - 237ml bottle PO SCH ×3 (08:00→18:28)
[2020-12-06] MEDS: K and/or MAG REPLACEMENT MC SCH ×2 (08:00→19:53)
[2020-12-06] MEDS: docusate sod 100mg capsule PO SCH ×2 (08:51→19:52)
[2020-12-06] MEDS: enoxaparin 50mg/0.5ml (from 3ml vial) syringe SUBCUT SCH ×2 (08:51→19:52)
[2020-12-06] MEDS: dexamethasone inj 4 MG in normal saline 50ml IV soln 50 ML IV SCH (08:51)
[2020-12-06 10:00] VITALS: BP 122/59
--- NOTE | 2020-12-06 12:45 | NUR ---
PAGER ID: [phone] MESSAGE: Lexis [phone] re: Marietta Lindsay. Son is wondering if we can get another chest xray? Last one was 11/30
[2020-12-06 14:00] VITALS: BP 121/70
[2020-12-06 18:00] VITALS: BP 124/60
--- NOTE | 2020-12-06 18:27 | NUR ---
Patient in room ORTHO 4013. I have received report from NOREEN Pires and had the opportunity to ask questions and assume patient care.
--- NOTE | 2020-12-06 18:36 | NUR ---
Preceptor documentation: I have reviewed and agree with all interventions, assessments performed and documented by Lexis Mathews RN.
--- NOTE | 2020-12-06 18:41 | NUR ---
Problems reprioritized. Patient report given, questions answered & plan of care reviewed with Lexi SORTO.
[2020-12-06] MEDS: LORazepam 0.5 MG tablet PO PRN (19:52)
[2020-12-06 22:00] VITALS: BP 138/71
[2020-12-07] VITALS (9 sets, daily range): BP systolic 88–120; BP diastolic 48–69
[2020-12-07] MEDS: LORazepam 0.5 MG tablet PO PRN ×2 (02:01→19:55)
--- NOTE | 2020-12-07 05:15 | NUR ---
Pt. BP at 0515 was 88/49.250 ml bolus was given per nursing protocol .We will continue with pt. care.
[2020-12-07] MEDS ORDERED: normal saline 250ml IV soln 250 ML IV ONE (05:25)
--- NOTE | 2020-12-07 06:09 | NUR ---
Problems reprioritized. Patient report given, questions answered & plan of care reviewed with NOREEN Pires.
--- NOTE | 2020-12-07 06:14 | NUR ---
Patient in room ORTHO 4013. I have received report from Lexi SORTO and had the opportunity to ask questions and assume patient care.
[2020-12-07] MEDS: K and/or MAG REPLACEMENT MC SCH ×2 (08:00→20:00)
[2020-12-07] MEDS: lactose-reduced food (Ensure Enlive) - 237ml bottle PO SCH ×3 (08:00→18:10)
[2020-12-07 08:41] LABS: D-DIMER 2.62 MG/L FEU (0-0.50)
[2020-12-07] MEDS: dexamethasone 1mg tablet PO SCH (08:47)
[2020-12-07] MEDS: docusate sod 100mg capsule PO SCH ×2 (08:47→19:55)
[2020-12-07] MEDS: enoxaparin 50mg/0.5ml (from 3ml vial) syringe SUBCUT SCH ×2 (08:48→19:57)
--- NOTE | 2020-12-07 09:12 | NUR ---
PAGER ID: [phone] MESSAGE: Lexis [phone] re: Marietta Montoya - son is requesting a current chest xray.
--- NOTE | 2020-12-07 15:42 | NUR ---
F/u 12/07: Pt prior 7 days constipation now resolved w/ large daily BM's following lactulose 12/03 per EMR. PO trends, however, remain unchanged 100% Ensure Enlive TIDWM w/ mostly 0% avg meals. Given pt stature is meeting 81% kcal and 90% protein needs w/ ONS intake alone. Now off bipap/cpap on 40L HFNC and NRB per EMR. LBM 12/06. Will continue to monitor. Rec: 1. continue regular diet; smoothie WS; encourage PO 2. Ensure Enlive TIDWM; encourage PO 3. routine bowel care; prior 7 days constipation 4. scaled wt this admit; subsequent weekly wts Addendum: 12/07/20 at [address] Amended: Links added.
--- NOTE | 2020-12-07 15:47 | NUR ---
Preceptor documentation: I have reviewed and agree with all interventions, assessments performed and documented by Lexis Mathews RN .
--- NOTE | 2020-12-07 18:11 | NUR ---
Patient in room ORTHO 4013. I have received report from NOREEN Pires and had the opportunity to ask questions and assume patient care.
[2020-12-07] MEDS: bisacodyl 10mg suppository rectal RC PRN (19:55)
[2020-12-08 02:00] VITALS: BP 140/68
[2020-12-08 06:00] VITALS: BP 107/55
--- NOTE | 2020-12-08 06:25 | NUR ---
Problems reprioritized. Patient report given, questions answered & plan of care reviewed with NOREEN Hermosillo.
--- NOTE | 2020-12-08 06:29 | NUR ---
Patient in room [facility]THO 4013. I have received report from NOREEN Elliott and had the opportunity to ask questions and assume patient care.
[2020-12-08] MEDS: docusate sod 100mg capsule PO SCH ×2 (09:18→19:22)
[2020-12-08] MEDS: dexamethasone 1mg tablet PO SCH (09:18)
[2020-12-08] MEDS: enoxaparin 50mg/0.5ml (from 3ml vial) syringe SUBCUT SCH ×2 (09:18→19:19)
[2020-12-08] MEDS: lactose-reduced food (Ensure Enlive) - 237ml bottle PO SCH ×3 (09:32→18:07)
[2020-12-08 10:00] VITALS: BP 111/62
[2020-12-08 14:00] VITALS: BP 99/61
[2020-12-08 18:00] VITALS: BP 103/47
--- NOTE | 2020-12-08 18:00 | NUR ---
has 30 liters oxygen hf and 15 liters nrb mask Addendum: 12/08/20 at 6 by Chrissy Valentine RN Amended: Links added.
--- NOTE | 2020-12-08 18:17 | NUR ---
Problems reprioritized. Patient report given, questions answered & plan of care reviewed with NOREEN Allan.
--- NOTE | 2020-12-08 18:37 | NUR ---
Patient in room [facility]TH[facility] 4013. I have received report from Jaimee SORTO and had the opportunity to ask questions and assume patient care.
[2020-12-08] MEDS: LORazepam 0.5 MG tablet PO PRN (21:32)
[2020-12-08 22:00] VITALS: BP 110/62
[2020-12-09 02:00] VITALS: BP 106/63
[2020-12-09 06:00] VITALS: BP 101/58
--- NOTE | 2020-12-09 06:00 | NUR ---
15 liters nrb along with hf oxygen Addendum: 12/09/20 at 0647 by Chrissy Valentine RN Amended: Links added.
--- NOTE | 2020-12-09 06:47 | NUR ---
Problems reprioritized. Patient report given, questions answered & plan of care reviewed with Monalisa SORTO.
[2020-12-09] MEDS: lactose-reduced food (Ensure Enlive) - 237ml bottle PO SCH ×3 (08:00→18:00)
[2020-12-09] MEDS: docusate sod 100mg capsule PO SCH ×2 (08:58→19:57)
[2020-12-09] MEDS: dexamethasone 1mg tablet PO SCH (08:58)
[2020-12-09] MEDS: enoxaparin 50mg/0.5ml (from 3ml vial) syringe SUBCUT SCH ×2 (08:59→19:57)
[2020-12-09] MEDS: bisacodyl 10mg suppository rectal RC PRN (15:15)
[2020-12-09] MEDS: diltiazem 30mg tablet PO SCH ×2 (15:15→23:58)
[2020-12-09 22:00] VITALS: BP 102/58
[2020-12-10 02:00] VITALS: BP 107/58
[2020-12-10 06:00] VITALS: BP 101/54
--- NOTE | 2020-12-10 06:27 | NUR ---
Problems reprioritized. Patient report given, questions answered & plan of care reviewed with NOREEN Sheldon.
[2020-12-10] MEDS ORDERED: ALBUTEROL INHALER 1 PUFF/90 MCG INHALER IH PRN (07:40)
[2020-12-10] MEDS: lactose-reduced food (Ensure Enlive) - 237ml bottle PO SCH ×3 (08:00→18:30)
[2020-12-10 10:00] VITALS: BP 90/51
[2020-12-10] MEDS: docusate sod 100mg capsule PO SCH ×2 (10:24→20:17)
[2020-12-10] MEDS: dexamethasone 1mg tablet PO SCH (10:24)
[2020-12-10] MEDS: enoxaparin 50mg/0.5ml (from 3ml vial) syringe SUBCUT SCH ×2 (10:24→20:17)
[2020-12-10] MEDS: diltiazem 30mg tablet PO SCH ×2 (10:24→18:19)
[2020-12-10 14:00] VITALS: BP 102/57
[2020-12-10 18:00] VITALS: BP 109/58
[2020-12-10] MEDS: benzonatate 100mg capsule PO PRN (20:18)
[2020-12-10 22:00] VITALS: BP 97/50
[2020-12-11] MEDS: diltiazem 30mg tablet PO SCH ×4 (00:45→16:17)
[2020-12-11 02:00] VITALS: BP 107/54
--- NOTE | 2020-12-11 06:29 | NUR ---
Patient in room [facility]TH[facility] 4013. I have received report from Romina RN and had the opportunity to ask questions and assume patient care.
[2020-12-11 06:38] VITALS: BP 99/53
[2020-12-11] MEDS: dexamethasone 1mg tablet PO SCH (07:30)
[2020-12-11] MEDS: enoxaparin 50mg/0.5ml (from 3ml vial) syringe SUBCUT SCH ×2 (07:30→19:29)
[2020-12-11] MEDS: docusate sod 100mg capsule PO SCH ×2 (07:30→19:29)
[2020-12-11] MEDS: benzonatate 100mg capsule PO PRN ×2 (07:42→16:17)
[2020-12-11] MEDS: lactose-reduced food (Ensure Enlive) - 237ml bottle PO SCH ×3 (08:45→18:31)
[2020-12-11 11:02] VITALS: BP 119/56
[2020-12-11] MEDS: guaiFENesin/DM 10ml UD oral syrup PO PRN ×2 (13:59→21:07)
[2020-12-11 14:40] VITALS: BP 120/57
[2020-12-11 18:00] VITALS: BP 122/70
--- NOTE | 2020-12-11 18:11 | NUR ---
Problems reprioritized. Patient report given, questions answered & plan of care reviewed with Coretta SORTO.
--- NOTE | 2020-12-11 18:43 | NUR ---
Patient in room ORTHO 4013. I have received report from Dee SORTO and had the opportunity to ask questions and assume patient care.
[2020-12-11 22:00] VITALS: BP 111/68
[2020-12-12] MEDS: diltiazem 30mg tablet PO SCH ×4 (00:15→23:14)
[2020-12-12] MEDS: benzonatate 100mg capsule PO PRN ×2 (00:15→15:47)
[2020-12-12 00:19] VITALS: BP 136/74
[2020-12-12 02:00] VITALS: BP 121/75
[2020-12-12 06:00] VITALS: BP 116/59
--- NOTE | 2020-12-12 06:18 | NUR ---
Problems reprioritized. Patient report given, questions answered & plan of care reviewed with Monalisa SORTO.
[2020-12-12 07:21] LABS: D-DIMER 1.05 MG/L FEU (0-0.50)
[2020-12-12] MEDS: dexamethasone 1mg tablet PO SCH (07:58)
[2020-12-12] MEDS: docusate sod 100mg capsule PO SCH ×2 (07:58→20:08)
[2020-12-12] MEDS: lactose-reduced food (Ensure Enlive) - 237ml bottle PO SCH ×3 (08:00→18:40)
[2020-12-12 10:00] VITALS: BP 134/169
[2020-12-12] MEDS: enoxaparin 50mg/0.5ml (from 3ml vial) syringe SUBCUT SCH ×2 (10:58→20:10)
--- NOTE | 2020-12-12 15:14 | NUR ---
F/u 12/12: Pt PO improving ~25-50% avg meals past 3 days now on MM5/thin diet w/ ~100% Ensure Enlive TIDWM. Ensure Enlive TIDWM replaced at times w/ Glucerna given national shortages. RN today reports pt does not like Glucernas and having family bring in standard Ensures from store. RD d/w dietary and RN; will send Nepro ONS if out of Ensure Enlive since dislikes Glucernas. RN reports pt too weak to eat previosuly and MM5 diet much easier to tolerate currently which is reflected in PO trends. Recent PO intake meeting estimated needs. LBM 12/11 receiving colace. Will continue to monitor. Rec: 1. continue regular/MM5/thin diet; smoothie WS; encourage PO 2. Ensure Enlive TIDWM; substitute using Nepro ONS if out of Enlive given national shortage since pt dislikes Glucernas; encourage PO 3. Ensures from outside by family; encourage PO 4. routine bowel care 5. scaled wt this admit; subsequent weekly wts Addendum: 12/12/20 at [address] Amended: Links added.
[2020-12-12] MEDS: guaiFENesin/DM 10ml UD oral syrup PO PRN ×2 (15:47→23:14)
--- NOTE | 2020-12-12 15:52 | NUR ---
scanner on computer not scanning meds into [facility], checked meds prior to admin
[2020-12-12 18:00] VITALS: BP 97/55
--- NOTE | 2020-12-12 18:45 | NUR ---
Patient in room ORTHO 4013. I have received report from Monalisa SORTO and had the opportunity to ask questions and assume patient care.
[2020-12-12 22:00] VITALS: BP 100/64
[2020-12-13 02:13] VITALS: BP 104/58
[2020-12-13] MEDS: guaiFENesin/DM 10ml UD oral syrup PO PRN ×3 (03:29→21:05)
[2020-12-13] MEDS: benzonatate 100mg capsule PO PRN ×2 (03:29→19:50)
[2020-12-13 06:00] VITALS: BP 108/62
--- NOTE | 2020-12-13 07:14 | NUR ---
Problems reprioritized. Patient report given, questions answered & plan of care reviewed with Jaimee SORTO.
--- NOTE | 2020-12-13 07:17 | NUR ---
Patient in room ORTHO 4013. I have received report from NOREEN Hitchcock and had the opportunity to ask questions and assume patient care.
[2020-12-13] MEDS: docusate sod 100mg capsule PO SCH ×2 (08:45→19:50)
[2020-12-13] MEDS: dexamethasone 1mg tablet PO SCH (08:45)
[2020-12-13] MEDS: lactose-reduced food (Ensure Enlive) - 237ml bottle PO SCH ×3 (08:45→18:01)
[2020-12-13] MEDS: diltiazem 30mg tablet PO SCH ×2 (08:45→16:00)
[2020-12-13] MEDS: enoxaparin 50mg/0.5ml (from 3ml vial) syringe SUBCUT SCH ×2 (08:45→19:50)
[2020-12-13 10:00] VITALS: BP 105/51
[2020-12-13 14:00] VITALS: BP 95/43
[2020-12-13 18:00] VITALS: BP 98/67
--- NOTE | 2020-12-13 18:21 | NUR ---
Problems reprioritized. Patient report given, questions answered & plan of care reviewed with NOREEN Alfonso.
[2020-12-13] MEDS ORDERED: simethicone 80mg chew tab PO PRN (20:25)
[2020-12-13 22:00] VITALS: BP 117/65
[2020-12-14] MEDS: LORazepam 0.5 MG tablet PO PRN (00:39)
[2020-12-14] MEDS: diltiazem 30mg tablet PO SCH ×3 (00:39→17:47)
--- NOTE | 2020-12-14 01:00 | NUR ---
pt drank tea, had small BM. repositioned. sats stable low 90% on HF 40L. NRB for prn use at bedside.
[2020-12-14 02:00] VITALS: BP 119/7
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
[2020-12-14 06:00] VITALS: BP 97/58
--- NOTE | 2020-12-14 06:42 | NUR ---
Patient in room ORTHO 4013B. I have received report from NOREEN STAFFORD and had the opportunity to ask questions and assume patient care.
[2020-12-14 07:25] LABS: BASOPHILS # (AUTO) 0.2 X10'3 (0-0.2); BASOPHILS % (AUTO) 0.3 % (0-1); EOSINOPHILS % (AUTO) 1.4 % (0-6); HEMATOCRIT 24.2 % (35.0-45.0); HEMOGLOBIN 7.7 g/dl (12.0-16.0); LYMPHOCYTES # (AUTO) 60.1 X10'3 (1.1-4.8); MEAN CORPUSCULAR HEMOGLOBIN 27.9 PG (27.0-31.0); MEAN CORPUSCULAR HGB CONC 31.7 g/dL (33.0-36.5); MEAN CORPUSCULAR VOLUME 88.1 FL (78-98); MEAN PLATELET VOLUME 6.6 FL (7.4-10.4); MONOCYTES # (AUTO) 1.1 X10'3 (0-0.9); MONOCYTES % (AUTO) 1.5 % (2-12); NEUTROPHILS # (AUTO) 9.2 X10'3 (1.8-7.7); NEUTROPHILS % (AUTO) 12.8 % (42-75); PLATELET COUNT 578 X10'3 (140-440); RED BLOOD COUNT 2.75 X10'6 (4.20-5.60); RED CELL DISTRIBUTION WIDTH 16.8 % (11.5-14.5)
[2020-12-14 07:28] LABS: WHITE BLOOD COUNT 71.6 X10'3 (4.5-11.0)
[2020-12-14 07:42] LABS: ALANINE AMINOTRANSFERASE 43 U/L (12-78); ALBUMIN 2.4 G/DL (3.4-5.0); ALBUMIN/GLOBULIN RATIO 0.7 (1.1-1.5); ALKALINE PHOSPHATASE 110 IU/L (46-116); ANION GAP 1 (8-16); ASPARTATE AMINO TRANSFERASE 26 U/L (10-37); BILIRUBIN,TOTAL 0.3 MG/DL (0.1-1.0); BLOOD UREA NITROGEN 17 MG/DL (7-18); BUN/CREATININE RATIO 30.9 (6.6-38.0); CALCIUM 8.7 MG/DL (8.5-10.1); CHLORIDE 104 MMOL/L (99-107); CREATININE 0.55 MG/DL (0.40-0.90); GLUCOSE 102 MG/DL (70-104); POTASSIUM 4.2 MMOL/L (3.5-5.1); SODIUM 140 MMOL/L (135-145); TOTAL PROTEIN 5.7 G/DL (6.4-8.2); eGFR > 90 ML/MIN
[2020-12-14] MEDS: lactose-reduced food (Ensure Enlive) - 237ml bottle PO SCH ×3 (08:00→18:00)
[2020-12-14 08:03] LABS: TOTAL CELLS COUNTED 100
[2020-12-14 08:04] LABS: ANISOCYTOSIS 1+; HYPOCHROMASIA 1+; PLATELET ESTIMATE NORMAL; POLYCHROMASIA 1+; ROULEAUX 1+; SMUDGE CELLS 2+
[2020-12-14] MEDS: docusate sod 100mg capsule PO SCH ×2 (09:09→19:37)
[2020-12-14] MEDS: dexamethasone 1mg tablet PO SCH (09:10)
[2020-12-14 09:20] VITALS: BP 104/59
[2020-12-14] MEDS: enoxaparin 50mg/0.5ml (from 3ml vial) syringe SUBCUT SCH ×2 (11:42→19:38)
--- NOTE | 2020-12-14 17:30 | NUR ---
Patient in room [facility]THO 4013. I have received report from NOREEN Vasquez and had the opportunity to ask questions and assume patient care.
--- NOTE | 2020-12-14 17:42 | NUR ---
Problems reprioritized. Patient report given, questions answered & plan of care reviewed with NOREEN ANTOINE.
--- NOTE | 2020-12-14 18:00 | NUR ---
Problems reprioritized. Patient report given, questions answered & plan of care reviewed with NOREEN Guidry.
[2020-12-14 18:55] VITALS: BP 104/59
--- NOTE | 2020-12-14 18:57 | NUR ---
Patient in room [facility]TH[facility] 4013. I have received report from ELINA SORTO and had the opportunity to ask questions and assume patient care.
[2020-12-14] MEDS: guaiFENesin/DM 10ml UD oral syrup PO PRN (20:44)
[2020-12-14 22:00] VITALS: BP 101/53
[2020-12-15 02:00] VITALS: BP 144/72
[2020-12-15] MEDS: guaiFENesin/DM 10ml UD oral syrup PO PRN ×2 (03:57→21:04)
[2020-12-15] MEDS: diltiazem 30mg tablet PO SCH ×5 (04:08→23:51)
[2020-12-15 06:00] VITALS: BP 115/70
--- NOTE | 2020-12-15 06:58 | NUR ---
Problems reprioritized. Patient report given, questions answered & plan of care reviewed with JONNIE SORTO.
--- NOTE | 2020-12-15 07:15 | NUR ---
pt is alert and oriented. seems in good spirits. Plan to try more activity today (ie up for meals) she is in agreement with the plan of care
[2020-12-15] MEDS: lactose-reduced food (Ensure Enlive) - 237ml bottle PO SCH ×3 (08:00→18:00)
[2020-12-15] MEDS: docusate sod 100mg capsule PO SCH ×2 (09:55→19:51)
[2020-12-15] MEDS: dexamethasone 1mg tablet PO SCH (09:55)
[2020-12-15] MEDS: enoxaparin 50mg/0.5ml (from 3ml vial) syringe SUBCUT SCH ×2 (09:56→19:51)
[2020-12-15 10:39] VITALS: BP 89/46
--- NOTE | 2020-12-15 10:40 | NUR ---
[facility]
--- NOTE | 2020-12-15 10:40 | NUR ---
leoncio cisneros- /46. Will address nery DIALLO. Addendum: 12/15/20 at 1041 by Jazzy Fournier RN Amended: Links added.
--- NOTE | 2020-12-15 11:17 | NUR ---
PAGER ID: [phone] MESSAGE: Malinda [phone] fa[address] Corneliofrancisco [place]- can I order labs for her? h/h trending down, last was 7.7. cbc, cmet, ddimer, crp x 3 days? Thanks
[2020-12-15 13:07] LABS: EOSINOPHILS % (AUTO) 1.4 % (0-6); HEMOGLOBIN 8.3 g/dl (12.0-16.0); MONOCYTES % (AUTO) 3.4 % (2-12)
[2020-12-15 13:11] LABS: BASOPHILS # (AUTO) 0.3 X10'3 (0-0.2); BASOPHILS % (AUTO) 0.4 % (0-1); HEMATOCRIT 26.5 % (35.0-45.0); LYMPHOCYTES # (AUTO) 58.9 X10'3 (1.1-4.8); LYMPHOCYTES % (AUTO) 82.5 % (21-51); MEAN CORPUSCULAR HEMOGLOBIN 27.7 PG (27.0-31.0); MEAN CORPUSCULAR HGB CONC 31.2 g/dL (33.0-36.5); MEAN CORPUSCULAR VOLUME 88.6 FL (78-98); MEAN PLATELET VOLUME 6.6 FL (7.4-10.4); MONOCYTES # (AUTO) 2.4 X10'3 (0-0.9); NEUTROPHILS # (AUTO) 8.8 X10'3 (1.8-7.7); NEUTROPHILS % (AUTO) 12.3 % (42-75); PLATELET COUNT 621 X10'3 (140-440); RED BLOOD COUNT 2.99 X10'6 (4.20-5.60); RED CELL DISTRIBUTION WIDTH 17.2 % (11.5-14.5)
[2020-12-15 13:13] LABS: WHITE BLOOD COUNT 71.4 X10'3 (4.5-11.0)
[2020-12-15 13:18] LABS: D-DIMER 0.99 MG/L FEU (0-0.50)
[2020-12-15 13:20] LABS: ALANINE AMINOTRANSFERASE 44 U/L (12-78); ALBUMIN 2.5 G/DL (3.4-5.0); ALBUMIN/GLOBULIN RATIO 0.7 (1.1-1.5); ALKALINE PHOSPHATASE 114 IU/L (46-116); ANION GAP 5 (8-16); ASPARTATE AMINO TRANSFERASE 26 U/L (10-37); BILIRUBIN,TOTAL 0.2 MG/DL (0.1-1.0); BLOOD UREA NITROGEN 18 MG/DL (7-18); C-REACTIVE PROTEIN 1.31 MG/DL (0.0-0.5); CALCIUM 8.7 MG/DL (8.5-10.1); CHLORIDE 101 MMOL/L (99-107); CREATININE 0.53 MG/DL (0.40-0.90); GLUCOSE 151 MG/DL (70-104); POTASSIUM 4.2 MMOL/L (3.5-5.1); SODIUM 141 MMOL/L (135-145); TOTAL CARBON DIOXIDE 34.7 MMOL/L (24-32); eGFR > 90 ML/MIN
[2020-12-15 13:38] LABS: ANISOCYTOSIS 1+; PLATELET ESTIMATE INCREASED; POIKILOCYTOSIS FEW; POLYCHROMASIA FEW; TOTAL CELLS COUNTED 100
--- NOTE | 2020-12-15 13:52 | NUR ---
PAGER ID: [phone] MESSAGE: Malinda Guero9- fausto Lindsay in - received critical white count, 71.4, expected value. h/h looks better. I held the Cardizem this am due to 89/46 BP. HR 109. Asymptomatic.
--- NOTE | 2020-12-15 14:52 | NUR ---
Reassessment: Received TC from RN regarding patient's food preferences that were d/w dietary, see below. Pt now on a heart healthy diet, no longer on minced and moist ground food. No significant changes in PO intake, documented with mostly 25-50% PO intake of meals with 100% PO intake of ONS TID. Per RN LBM today required disimpaction as pt with hard BMs and pt unwilling to assist with passing BM. Pt receiving routine Colace with additional PRN bowel care available. Per RN pt continually requesting food from the BRAT diet however this is food to help thicken stool. D/w dietary to send nutrition intervention to assist with softening stool for the following three meals. Will continue to follow and monitor need for further nutrition intervention. Recommendations: 1. Advance to regular diet with MD approval, d/w RN 2. Ensure Enlive TIDWM; substitute using Nepro ONS if out of Enlive given national shortage since pt dislikes Glucerna; Okay to have Ensures brought in by family to optimize PO intake of ONS 3. [place] food preferences: Applesauce and banana WB, vanilla yogurt WL, soft fruit BIDLD, smoothie WS 4. Routine bowel care; utilize PRN bowel care given pt with difficult to pass hard stools per RN 5. Scaled wt this admit; subsequent weekly wts Addendum: 12/15/20 at [address] Amended: Links added.
[2020-12-15 18:00] VITALS: BP 119/76
--- NOTE | 2020-12-15 18:33 | NUR ---
Patient in room ORTHO 4013. I have received report from Malinda SORTO and had the opportunity to ask questions and assume patient care.
[2020-12-15] MEDS: salt irrigation nasal spray 45 ML SPRAY NS PRN ×2 (20:04→23:52)
[2020-12-15] MEDS: benzonatate 100mg capsule PO PRN (21:04)
[2020-12-15 22:00] VITALS: BP 123/71
[2020-12-16] MEDS: guaiFENesin/DM 10ml UD oral syrup PO PRN ×4 (01:10→23:17)
[2020-12-16 02:00] VITALS: BP 102/58
[2020-12-16 06:00] VITALS: BP 111/64
--- NOTE | 2020-12-16 06:45 | NUR ---
Problems reprioritized. Patient report given, questions answered & plan of care reviewed with Monalisa SORTO.
[2020-12-16 07:45] LABS: BASOPHILS # (AUTO) 0.1 X10'3 (0-0.2); BASOPHILS % (AUTO) 0.2 % (0-1); EOSINOPHILS # (AUTO) 1.1 X10'3 (0-0.9); HEMOGLOBIN 8.6 g/dl (12.0-16.0); RED CELL DISTRIBUTION WIDTH 17.4 % (11.5-14.5)
[2020-12-16 07:46] LABS: D-DIMER 2.91 MG/L FEU (0-0.50)
[2020-12-16 07:49] LABS: EOSINOPHILS % (AUTO) 1.7 % (0-6); HEMATOCRIT 27.2 % (35.0-45.0); LYMPHOCYTES # (AUTO) 55.8 X10'3 (1.1-4.8); LYMPHOCYTES % (AUTO) 85.4 % (21-51); MEAN CORPUSCULAR HEMOGLOBIN 27.8 PG (27.0-31.0); MEAN CORPUSCULAR HGB CONC 31.6 g/dL (33.0-36.5); MEAN CORPUSCULAR VOLUME 88.2 FL (78-98); MEAN PLATELET VOLUME 6.7 FL (7.4-10.4); MONOCYTES # (AUTO) 1.2 X10'3 (0-0.9); MONOCYTES % (AUTO) 1.9 % (2-12); NEUTROPHILS # (AUTO) 7.1 X10'3 (1.8-7.7); NEUTROPHILS % (AUTO) 10.8 % (42-75); PLATELET COUNT 588 X10'3 (140-440); RED BLOOD COUNT 3.09 X10'6 (4.20-5.60)
[2020-12-16 07:52] LABS: WHITE BLOOD COUNT 65.3 X10'3 (4.5-11.0)
[2020-12-16] MEDS: lactose-reduced food (Ensure Enlive) - 237ml bottle PO SCH ×3 (08:00→18:00)
[2020-12-16 08:03] LABS: ALANINE AMINOTRANSFERASE 37 U/L (12-78); ALBUMIN 2.6 G/DL (3.4-5.0); ALBUMIN/GLOBULIN RATIO 0.8 (1.1-1.5); ALKALINE PHOSPHATASE 112 IU/L (46-116); ANION GAP 0 (8-16); ASPARTATE AMINO TRANSFERASE 23 U/L (10-37); BILIRUBIN,TOTAL 0.4 MG/DL (0.1-1.0); BLOOD UREA NITROGEN 16 MG/DL (7-18); BUN/CREATININE RATIO 30.2 (6.6-38.0); C-REACTIVE PROTEIN 1.18 MG/DL (0.0-0.5); CALCIUM 9.3 MG/DL (8.5-10.1); CHLORIDE 101 MMOL/L (99-107); CREATININE 0.53 MG/DL (0.40-0.90); GLUCOSE 103 MG/DL (70-104); POTASSIUM 3.7 MMOL/L (3.5-5.1); SODIUM 137 MMOL/L (135-145); TOTAL PROTEIN 5.9 G/DL (6.4-8.2); eGFR > 90 ML/MIN
[2020-12-16 08:45] LABS: ANISOCYTOSIS 1+; HYPOCHROMASIA 1+; PLATELET ESTIMATE INCREASED; POLYCHROMASIA 2+; SMUDGE CELLS 2+; TOTAL CELLS COUNTED 100
[2020-12-16] MEDS: enoxaparin 50mg/0.5ml (from 3ml vial) syringe SUBCUT SCH ×2 (10:06→21:12)
[2020-12-16] MEDS: diltiazem 30mg tablet PO SCH ×2 (10:06→16:05)
[2020-12-16] MEDS: dexamethasone 1mg tablet PO SCH (10:07)
[2020-12-16] MEDS: docusate sod 100mg capsule PO SCH ×2 (10:07→21:12)
[2020-12-16] MEDS: acetaminophen 325mg tablet PO PRN (14:45)
[2020-12-16] MEDS: bisacodyl 10mg suppository rectal RC PRN (16:05)
--- NOTE | 2020-12-16 18:13 | NUR ---
Report to May RN
[2020-12-16 20:00] VITALS: BP 115/69
[2020-12-16] MEDS: benzonatate 100mg capsule PO PRN (21:16)
[2020-12-16 23:50] VITALS: BP 100/54
[2020-12-17] VITALS (7 sets, daily range): BP systolic 97–125; BP diastolic 54–68
[2020-12-17] MEDS: diltiazem 30mg tablet PO SCH ×3 (01:55→16:29)
[2020-12-17] MEDS: guaiFENesin/DM 10ml UD oral syrup PO PRN ×3 (04:38→15:56)
[2020-12-17 07:11] LABS: HEMOGLOBIN 9.6 g/dl (12.0-16.0); MEAN CORPUSCULAR HEMOGLOBIN 27.7 PG (27.0-31.0); MEAN CORPUSCULAR HGB CONC 31.4 g/dL (33.0-36.5); MEAN PLATELET VOLUME 6.5 FL (7.4-10.4)
[2020-12-17 07:16] LABS: BASOPHILS # (AUTO) 0.4 X10'3 (0-0.2); BASOPHILS % (AUTO) 0.5 % (0-1); EOSINOPHILS % (AUTO) 1.4 % (0-6); HEMATOCRIT 30.5 % (35.0-45.0); LYMPHOCYTES # (AUTO) 63.3 X10'3 (1.1-4.8); LYMPHOCYTES % (AUTO) 84.4 % (21-51); MONOCYTES # (AUTO) 2.4 X10'3 (0-0.9); MONOCYTES % (AUTO) 3.1 % (2-12); NEUTROPHILS # (AUTO) 7.9 X10'3 (1.8-7.7); NEUTROPHILS % (AUTO) 10.6 % (42-75); PLATELET COUNT 592 X10'3 (140-440); RED BLOOD COUNT 3.47 X10'6 (4.20-5.60); RED CELL DISTRIBUTION WIDTH 17.8 % (11.5-14.5)
[2020-12-17 07:32] LABS: D-DIMER 0.97 MG/L FEU (0-0.50)
[2020-12-17 07:53] LABS: ALANINE AMINOTRANSFERASE 38 U/L (12-78); ALBUMIN 2.8 G/DL (3.4-5.0); ALBUMIN/GLOBULIN RATIO 0.7 (1.1-1.5); ALKALINE PHOSPHATASE 125 IU/L (46-116); ANION GAP 10 (8-16); ASPARTATE AMINO TRANSFERASE 26 U/L (10-37); BILIRUBIN,TOTAL 0.3 MG/DL (0.1-1.0); BLOOD UREA NITROGEN 14 MG/DL (7-18); BUN/CREATININE RATIO 25.9 (6.6-38.0); C-REACTIVE PROTEIN 0.89 MG/DL (0.0-0.5); CALCIUM 9.5 MG/DL (8.5-10.1); CHLORIDE 101 MMOL/L (99-107); CREATININE 0.54 MG/DL (0.40-0.90); GLUCOSE 98 MG/DL (70-104); SODIUM 143 MMOL/L (135-145); TOTAL CARBON DIOXIDE 32.4 MMOL/L (24-32); TOTAL PROTEIN 6.6 G/DL (6.4-8.2); eGFR > 90 ML/MIN
[2020-12-17] MEDS: lactose-reduced food (Ensure Enlive) - 237ml bottle PO SCH ×3 (08:00→19:30)
[2020-12-17] MEDS: dexamethasone 1mg tablet PO SCH (10:14)
[2020-12-17] MEDS: docusate sod 100mg capsule PO SCH ×2 (10:15→20:25)
[2020-12-17 10:20] LABS: TOTAL CELLS COUNTED 100
[2020-12-17 10:21] LABS: PLATELET ESTIMATE INCREASED
[2020-12-17 10:22] LABS: ANISOCYTOSIS 1+; POLYCHROMASIA FEW; SMUDGE CELLS 2+
[2020-12-17] MEDS: benzonatate 100mg capsule PO PRN ×2 (12:29→20:25)
[2020-12-17] MEDS: enoxaparin 30mg/0.3ml syringe SUBCUT SCH (20:26)
[2020-12-18] VITALS (7 sets, daily range): BP systolic 97–127; BP diastolic 52–69
[2020-12-18] MEDS: guaiFENesin/DM 10ml UD oral syrup PO PRN ×4 (00:02→23:01)
[2020-12-18 07:36] LABS: BASOPHILS # (AUTO) 0.1 X10'3 (0-0.2); EOSINOPHILS # (AUTO) 0.7 X10'3 (0-0.9); EOSINOPHILS % (AUTO) 1.2 % (0-6); MEAN CORPUSCULAR VOLUME 88.6 FL (78-98); MONOCYTES # (AUTO) 1.2 X10'3 (0-0.9); PLATELET COUNT 551 X10'3 (140-440)
[2020-12-18 07:39] LABS: BASOPHILS % (AUTO) 0.1 % (0-1); HEMATOCRIT 26.1 % (35.0-45.0); HEMOGLOBIN 8.3 g/dl (12.0-16.0); LYMPHOCYTES # (AUTO) 50.9 X10'3 (1.1-4.8); MEAN CORPUSCULAR HGB CONC 31.6 g/dL (33.0-36.5); MEAN PLATELET VOLUME 6.3 FL (7.4-10.4); NEUTROPHILS # (AUTO) 7.7 X10'3 (1.8-7.7); NEUTROPHILS % (AUTO) 12.7 % (42-75); RED BLOOD COUNT 2.95 X10'6 (4.20-5.60); RED CELL DISTRIBUTION WIDTH 17.5 % (11.5-14.5)
[2020-12-18 07:44] LABS: WHITE BLOOD COUNT 60.6 X10'3 (4.5-11.0)
[2020-12-18 07:47] LABS: D-DIMER 0.76 MG/L FEU (0-0.50)
[2020-12-18] MEDS: lactose-reduced food (Ensure Enlive) - 237ml bottle PO SCH ×3 (08:00→19:00)
[2020-12-18] MEDS: docusate sod 100mg capsule PO SCH ×2 (08:09→23:05)
[2020-12-18] MEDS: diltiazem 30mg tablet PO SCH ×3 (08:09→22:59)
[2020-12-18] MEDS: enoxaparin 30mg/0.3ml syringe SUBCUT SCH ×2 (08:11→20:44)
[2020-12-18 08:29] LABS: ANISOCYTOSIS 2+; PLATELET ESTIMATE INCREASED; TOTAL CELLS COUNTED 100
[2020-12-18 08:30] LABS: POLYCHROMASIA FEW; SCHISTOCYTES FEW; SPHEROCYTES 1+
[2020-12-18] MEDS: salt irrigation nasal spray 45 ML SPRAY NS PRN (08:30)
[2020-12-18 08:31] LABS: SMUDGE CELLS 1+
--- NOTE | 2020-12-18 08:36 | NUR ---
PAGER ID: [phone] MESSAGE: [id number] Lindsay c/o chest tightness, EKG done LILO [id number]
[2020-12-18 08:40] LABS: ALANINE AMINOTRANSFERASE 32 U/L (12-78); ALBUMIN 2.6 G/DL (3.4-5.0); ALBUMIN/GLOBULIN RATIO 0.8 (1.1-1.5); ALKALINE PHOSPHATASE 116 IU/L (46-116); ANION GAP 4 (8-16); ASPARTATE AMINO TRANSFERASE 21 U/L (10-37); BILIRUBIN,TOTAL 0.2 MG/DL (0.1-1.0); BLOOD UREA NITROGEN 13 MG/DL (7-18); BUN/CREATININE RATIO 23.6 (6.6-38.0); C-REACTIVE PROTEIN 0.72 MG/DL (0.0-0.5); CHLORIDE 101 MMOL/L (99-107); CREATININE 0.55 MG/DL (0.40-0.90); GLUCOSE 100 MG/DL (70-104); POTASSIUM 3.8 MMOL/L (3.5-5.1); SODIUM 141 MMOL/L (135-145); TOTAL CARBON DIOXIDE 36.4 MMOL/L (24-32); TOTAL PROTEIN 5.9 G/DL (6.4-8.2); eGFR > 90 ML/MIN
[2020-12-18] MEDS: LORazepam 0.5 MG tablet PO PRN (12:37)
[2020-12-18] MEDS: benzonatate 100mg capsule PO PRN (12:39)
[2020-12-19 02:00] VITALS: BP 111/55
[2020-12-19 07:00] VITALS: BP 110/59
[2020-12-19] MEDS: diltiazem 30mg tablet PO SCH ×4 (07:30→23:36)
[2020-12-19] MEDS: enoxaparin 30mg/0.3ml syringe SUBCUT SCH (07:31)
[2020-12-19] MEDS: docusate sod 100mg capsule PO SCH ×2 (07:35→19:16)
[2020-12-19] MEDS: lactose-reduced food (Ensure Enlive) - 237ml bottle PO SCH ×3 (08:00→18:26)
[2020-12-19 08:02] LABS: BASOPHILS # (AUTO) 0.2 X10'3 (0-0.2); BASOPHILS % (AUTO) 0.4 % (0-1); EOSINOPHILS # (AUTO) 0.7 X10'3 (0-0.9); EOSINOPHILS % (AUTO) 1.3 % (0-6); HEMATOCRIT 25.9 % (35.0-45.0); HEMOGLOBIN 8.2 g/dl (12.0-16.0); LYMPHOCYTES # (AUTO) 42.3 X10'3 (1.1-4.8); LYMPHOCYTES % (AUTO) 83.5 % (21-51); MEAN CORPUSCULAR HEMOGLOBIN 27.7 PG (27.0-31.0); MEAN CORPUSCULAR HGB CONC 31.6 g/dL (33.0-36.5); MEAN CORPUSCULAR VOLUME 87.6 FL (78-98); MEAN PLATELET VOLUME 6.7 FL (7.4-10.4); MONOCYTES % (AUTO) 2.1 % (2-12); NEUTROPHILS # (AUTO) 6.4 X10'3 (1.8-7.7); NEUTROPHILS % (AUTO) 12.7 % (42-75); PLATELET COUNT 525 X10'3 (140-440); RED BLOOD COUNT 2.96 X10'6 (4.20-5.60); RED CELL DISTRIBUTION WIDTH 17.8 % (11.5-14.5)
[2020-12-19 08:07] LABS: WHITE BLOOD COUNT 50.6 X10'3 (4.5-11.0)
[2020-12-19 08:13] LABS: ALANINE AMINOTRANSFERASE 32 U/L (12-78); ALBUMIN 2.6 G/DL (3.4-5.0); ALBUMIN/GLOBULIN RATIO 0.8 (1.1-1.5); ALKALINE PHOSPHATASE 125 IU/L (46-116); ANION GAP 1 (8-16); ASPARTATE AMINO TRANSFERASE 26 U/L (10-37); BILIRUBIN,TOTAL 0.2 MG/DL (0.1-1.0); BLOOD UREA NITROGEN 16 MG/DL (7-18); C-REACTIVE PROTEIN 1.17 MG/DL (0.0-0.5); CALCIUM 9.5 MG/DL (8.5-10.1); CHLORIDE 102 MMOL/L (99-107); GLUCOSE 72 MG/DL (70-104); SODIUM 141 MMOL/L (135-145); TOTAL CARBON DIOXIDE 38.2 MMOL/L (24-32); eGFR > 90 ML/MIN
[2020-12-19 08:31] LABS: D-DIMER 0.66 MG/L FEU (0-0.50)
[2020-12-19 11:00] VITALS: BP 103/54
[2020-12-19 11:22] LABS: TOTAL CELLS COUNTED 100
[2020-12-19 11:23] LABS: ANISOCYTOSIS 1+; PLATELET ESTIMATE INCREASED; SMUDGE CELLS 2+
[2020-12-19 11:24] LABS: STOMATOCYTES 1+; TEAR DROP CELLS 1+
[2020-12-19 11:25] LABS: SPHEROCYTES 1+
--- NOTE | 2020-12-19 13:37 | NUR ---
F/u 12/19: Pt PO regressed now 0-25% avg meals and ~61% ONS past 5 days; refused 4 out of past 6 Ensures past 2 days partially meeting estimated needs. RD d/w RN who reports pt consumed Ensure this AM; 100% ONS w/ 50% breakfast intake per EMR. RD d/w RN regarding liberalizing to regular diet if MD agreeable given serum Na WNL, poor PO intake, and no cardiac hx. Noted pt on 45L oxygen yesterday now down to 6L high flow salter per EMR. LBM 12/18. Will continue to monitor for further PO/ONS trends w/ decreasing oxygen requirements. Recommendations: 1. Advance to regular diet if MD agreeable given poor PO hx, serum Na WNL, and no cardiac hx per EMR, d/w RN 2. Ensure Enlive TIDWM; substitute using Nepro ONS if out of Enlive given national shortage since pt dislikes Glucerna; Okay to have Ensures brought in by family to optimize PO intake of ONS. Encourage PO 3. [place] food preferences: Applesauce and banana WB, vanilla yogurt WL, soft fruit BIDLD, smoothie WS 4. Routine bowel care; utilize PRN bowel care if pt w/ continued difficulty; previous trouble passing hard stools per RN 5. Scaled wt this admit; subsequent weekly wts Addendum: 12/19/20 at [address] Amended: Links added.
--- NOTE | 2020-12-19 13:53 | NUR ---
Plan of care updated with chuck Stewart via telephone call.
[2020-12-19 14:32] VITALS: BP 110/55
[2020-12-19 18:00] VITALS: BP 108/64
--- NOTE | 2020-12-19 18:27 | NUR ---
Problems reprioritized. Patient report given, questions answered & plan of care reviewed with NOREEN Allan.
--- NOTE | 2020-12-19 18:32 | NUR ---
Patient in room ORTH[facility] 4013. I have received report from Germania SORTO and had the opportunity to ask questions and assume patient care.
[2020-12-19 22:00] VITALS: BP 134/73
[2020-12-20 02:00] VITALS: BP 119/62
[2020-12-20 06:22] VITALS: BP 108/60
--- NOTE | 2020-12-20 06:22 | NUR ---
Patient in room ORTHO 4013. I have received report from Sanjana SORTO and had the opportunity to ask questions and assume patient care.
[2020-12-20 07:35] LABS: HEMOGLOBIN 8.9 g/dl (12.0-16.0)
[2020-12-20 07:38] LABS: BASOPHILS # (AUTO) 0.2 X10'3 (0-0.2); BASOPHILS % (AUTO) 0.4 % (0-1); EOSINOPHILS # (AUTO) 0.7 X10'3 (0-0.9); EOSINOPHILS % (AUTO) 1.5 % (0-6); HEMATOCRIT 28.3 % (35.0-45.0); LYMPHOCYTES # (AUTO) 36.4 X10'3 (1.1-4.8); LYMPHOCYTES % (AUTO) 80.5 % (21-51); MEAN CORPUSCULAR HEMOGLOBIN 27.8 PG (27.0-31.0); MEAN CORPUSCULAR HGB CONC 31.3 g/dL (33.0-36.5); MEAN CORPUSCULAR VOLUME 88.8 FL (78-98); MEAN PLATELET VOLUME 6.7 FL (7.4-10.4); MONOCYTES # (AUTO) 1.8 X10'3 (0-0.9); NEUTROPHILS # (AUTO) 6.2 X10'3 (1.8-7.7); NEUTROPHILS % (AUTO) 13.6 % (42-75); PLATELET COUNT 473 X10'3 (140-440); RED BLOOD COUNT 3.19 X10'6 (4.20-5.60); RED CELL DISTRIBUTION WIDTH 18.2 % (11.5-14.5)
[2020-12-20 07:49] LABS: WHITE BLOOD COUNT 45.2 X10'3 (4.5-11.0)
--- NOTE | 2020-12-20 07:50 | NUR ---
PAGER ID: [phone] MESSAGE: [id number], Lindsay WBC critical at 45.2, have been critically high her entire admission; suspected CLL. Deepika [phone]
[2020-12-20 07:59] LABS: ALANINE AMINOTRANSFERASE 33 U/L (12-78); ALBUMIN 2.6 G/DL (3.4-5.0); ALBUMIN/GLOBULIN RATIO 0.8 (1.1-1.5); ALKALINE PHOSPHATASE 116 IU/L (46-116); ANION GAP 4 (8-16); ASPARTATE AMINO TRANSFERASE 24 U/L (10-37); BILIRUBIN,TOTAL 0.2 MG/DL (0.1-1.0); BLOOD UREA NITROGEN 15 MG/DL (7-18); BUN/CREATININE RATIO 28.8 (6.6-38.0); C-REACTIVE PROTEIN 0.74 MG/DL (0.0-0.5); CALCIUM 9.3 MG/DL (8.5-10.1); CHLORIDE 102 MMOL/L (99-107); CREATININE 0.52 MG/DL (0.40-0.90); GLUCOSE 96 MG/DL (70-104); POTASSIUM 4.1 MMOL/L (3.5-5.1); SODIUM 144 MMOL/L (135-145); TOTAL CARBON DIOXIDE 38.3 MMOL/L (24-32); eGFR > 90 ML/MIN
[2020-12-20] MEDS: docusate sod 100mg capsule PO SCH ×2 (08:00→19:45)
[2020-12-20] MEDS: enoxaparin 40mg/0.4ml syringe SUBCUT SCH (08:05)
[2020-12-20] MEDS: diltiazem 30mg tablet PO SCH ×2 (08:05→16:41)
[2020-12-20 08:17] LABS: D-DIMER 1.54 MG/L FEU (0-0.50)
[2020-12-20] MEDS: lactose-reduced food (Ensure Enlive) - 237ml bottle PO SCH ×3 (08:36→18:22)
[2020-12-20 10:00] VITALS: BP 116/54
[2020-12-20 13:51] LABS: TOTAL CELLS COUNTED 100
[2020-12-20 13:52] LABS: ANISOCYTOSIS 2+; PLATELET ESTIMATE INCREASED; SMUDGE CELLS 2+
[2020-12-20] MEDS: benzonatate 100mg capsule PO PRN (16:49)
[2020-12-20 18:00] VITALS: BP 142/69
--- NOTE | 2020-12-20 18:19 | NUR ---
Problems reprioritized. Patient report given, questions answered & plan of care reviewed with Sanjana SORTO.
--- NOTE | 2020-12-20 18:21 | NUR ---
Patient in room ORTHO 4013. I have received report from Deepika SORTO and had the opportunity to ask questions and assume patient care.
[2020-12-20] MEDS: guaiFENesin/DM 10ml UD oral syrup PO PRN (20:22)
[2020-12-20 22:00] VITALS: BP 111/70
[2020-12-21] MEDS: benzonatate 100mg capsule PO PRN ×2 (00:33→08:43)
[2020-12-21] MEDS: diltiazem 30mg tablet PO SCH ×3 (00:34→15:39)
[2020-12-21 02:00] VITALS: BP 97/50
--- NOTE | 2020-12-21 06:21 | NUR ---
Problems reprioritized. Patient report given, questions answered & plan of care reviewed with Deepika SORTO.
--- NOTE | 2020-12-21 06:41 | NUR ---
Patient in room ORTHO 4013. I have received report from Sanjana OSRTO and had the opportunity to ask questions and assume patient care.
[2020-12-21 06:42] VITALS: BP 101/60
[2020-12-21] MEDS: docusate sod 100mg capsule PO SCH (08:00)
[2020-12-21] MEDS: lactose-reduced food (Ensure Enlive) - 237ml bottle PO SCH ×3 (08:33→18:00)
[2020-12-21] MEDS: enoxaparin 40mg/0.4ml syringe SUBCUT SCH (08:41)
[2020-12-21 09:52] VITALS: BP 116/59
[2020-12-21 11:26] LABS: BASOPHILS # (AUTO) 0.4 X10'3 (0-0.2); BASOPHILS % (AUTO) 0.8 % (0-1); MEAN PLATELET VOLUME 7.2 FL (7.4-10.4)
[2020-12-21 11:27] LABS: EOSINOPHILS # (AUTO) 0.7 X10'3 (0-0.9); EOSINOPHILS % (AUTO) 1.4 % (0-6); HEMATOCRIT 28.9 % (35.0-45.0); LYMPHOCYTES # (AUTO) 42.2 X10'3 (1.1-4.8); LYMPHOCYTES % (AUTO) 80.4 % (21-51); MEAN CORPUSCULAR HEMOGLOBIN 27.6 PG (27.0-31.0); MEAN CORPUSCULAR HGB CONC 31.1 g/dL (33.0-36.5); MEAN CORPUSCULAR VOLUME 88.6 FL (78-98); MONOCYTES # (AUTO) 1.3 X10'3 (0-0.9); MONOCYTES % (AUTO) 2.6 % (2-12); NEUTROPHILS # (AUTO) 7.8 X10'3 (1.8-7.7); NEUTROPHILS % (AUTO) 14.8 % (42-75); PLATELET COUNT 436 X10'3 (140-440); RED BLOOD COUNT 3.27 X10'6 (4.20-5.60); RED CELL DISTRIBUTION WIDTH 18.3 % (11.5-14.5)
[2020-12-21 11:32] LABS: D-DIMER 1.58 MG/L FEU (0-0.50)
[2020-12-21 11:33] LABS: WHITE BLOOD COUNT 52.5 X10'3 (4.5-11.0)
[2020-12-21 11:38] LABS: ALANINE AMINOTRANSFERASE 37 U/L (12-78); ALBUMIN 2.7 G/DL (3.4-5.0); ALBUMIN/GLOBULIN RATIO 0.8 (1.1-1.5); ALKALINE PHOSPHATASE 125 IU/L (46-116); ANION GAP 3 (8-16); ASPARTATE AMINO TRANSFERASE 25 U/L (10-37); BILIRUBIN,TOTAL 0.2 MG/DL (0.1-1.0); BLOOD UREA NITROGEN 17 MG/DL (7-18); BUN/CREATININE RATIO 27.9 (6.6-38.0); C-REACTIVE PROTEIN 0.98 MG/DL (0.0-0.5); CALCIUM 9.6 MG/DL (8.5-10.1); CHLORIDE 98 MMOL/L (99-107); CREATININE 0.61 MG/DL (0.40-0.90); GLUCOSE 148 MG/DL (70-104); POTASSIUM 4.1 MMOL/L (3.5-5.1); SODIUM 139 MMOL/L (135-145); TOTAL CARBON DIOXIDE 37.8 MMOL/L (24-32); TOTAL PROTEIN 6.2 G/DL (6.4-8.2); eGFR > 90 ML/MIN
[2020-12-21 12:54] LABS: ANISOCYTOSIS 2+; PLATELET ESTIMATE NORMAL; TOTAL CELLS COUNTED 100
[2020-12-21 12:55] LABS: ELLIPTOCYTES FEW; HYPOCHROMASIA 1+; POLYCHROMASIA 2+
[2020-12-21 14:44] VITALS: BP 147/54
[2020-12-21] MEDS: guaiFENesin/DM 10ml UD oral syrup PO PRN (15:36)
[2020-12-21] MEDS: guaiFENesin/DM 10ml UD oral syrup PO SCH ×2 (17:55→19:23)
[2020-12-21 18:00] VITALS: BP 99/54
--- NOTE | 2020-12-21 18:17 | NUR ---
Problems reprioritized. Patient report given, questions answered & plan of care reviewed with Sanjana SORTO.
--- NOTE | 2020-12-21 18:24 | NUR ---
Patient in room ORTHO 4013. I have received report from Deepika SORTO and had the opportunity to ask questions and assume patient care.
--- NOTE | 2020-12-21 19:16 | NUR ---
Patient refusing to start new Chemotherapy medication tonight due to MD had not spoke to patient about starting this medication. Patient's son has questions for MD about the diagnosis and the medication that has been ordered.
[2020-12-21] MEDS: ALBUTEROL INHALER 1 PUFF/90 MCG INHALER IH SCH (21:27)
[2020-12-21 22:00] VITALS: BP 112/66
[2020-12-22] VITALS (7 sets, daily range): BP systolic 95–118; BP diastolic 48–58
[2020-12-22] MEDS: guaiFENesin/DM 10ml UD oral syrup PO SCH ×6 (00:49→19:39)
[2020-12-22] MEDS: ALBUTEROL INHALER 1 PUFF/90 MCG INHALER IH SCH ×6 (00:52→19:39)
[2020-12-22] MEDS: diltiazem 30mg tablet PO SCH ×3 (00:52→16:52)
--- NOTE | 2020-12-22 06:17 | NUR ---
Problems reprioritized. Patient report given, questions answered & plan of care reviewed with Deepika SORTO.
--- NOTE | 2020-12-22 06:22 | NUR ---
Patient in room ORTHO 4013. I have received report from Sanjana SORTO and had the opportunity to ask questions and assume patient care.
[2020-12-22] MEDS: enoxaparin 40mg/0.4ml syringe SUBCUT SCH (08:14)
[2020-12-22] MEDS: lactose-reduced food (Ensure Enlive) - 237ml bottle PO SCH ×3 (08:56→18:00)
[2020-12-22 10:22] LABS: HEMOGLOBIN 8.6 g/dl (12.0-16.0); MEAN CORPUSCULAR HGB CONC 31.6 g/dL (33.0-36.5); MEAN CORPUSCULAR VOLUME 88.6 FL (78-98)
[2020-12-22 10:24] LABS: HEMATOCRIT 27.3 % (35.0-45.0); MEAN PLATELET VOLUME 6.7 FL (7.4-10.4); PLATELET COUNT 393 X10'3 (140-440); RED BLOOD COUNT 3.08 X10'6 (4.20-5.60); RED CELL DISTRIBUTION WIDTH 18.5 % (11.5-14.5)
[2020-12-22 10:26] LABS: WHITE BLOOD COUNT 45.9 X10'3 (4.5-11.0)
[2020-12-22 10:36] LABS: ALANINE AMINOTRANSFERASE 34 U/L (12-78); ALBUMIN 2.7 G/DL (3.4-5.0); ALBUMIN/GLOBULIN RATIO 0.8 (1.1-1.5); ALKALINE PHOSPHATASE 118 IU/L (46-116); ANION GAP 4 (8-16); ASPARTATE AMINO TRANSFERASE 25 U/L (10-37); BILIRUBIN,TOTAL 0.3 MG/DL (0.1-1.0); BLOOD UREA NITROGEN 15 MG/DL (7-18); BUN/CREATININE RATIO 25.9 (6.6-38.0); CALCIUM 9.3 MG/DL (8.5-10.1); CHLORIDE 99 MMOL/L (99-107); CREATININE 0.58 MG/DL (0.40-0.90); GLUCOSE 109 MG/DL (70-104); POTASSIUM 3.8 MMOL/L (3.5-5.1); SODIUM 141 MMOL/L (135-145); TOTAL CARBON DIOXIDE 38.1 MMOL/L (24-32); eGFR > 90 ML/MIN
[2020-12-22 10:48] LABS: PLATELET ESTIMATE NORMAL; POIKILOCYTOSIS FEW; TOTAL CELLS COUNTED 100
--- NOTE | 2020-12-22 11:08 | NUR ---
Reassessment: Patient's PO intake of meals fluctuates with 25-50% PO intake. PO intake of ONS has significantly improved, consistently at 100% PO intake of Ensure Enlive TID. PO intake of ONS alone meets roughly 80% minimum estimated energy needs and 88% minimum estimated protein needs, therefore pt meeting estimated nutrient needs at this time with combined PO intake of meals and ONS. RD continues to recommend advancing diet to regular given no cardiac history. LBM 12/21, routine bowel care discontinued. No further nutrition intervention at this time. Will continue to follow. Recommendations: 1. Advance to regular diet if MD agreeable given poor PO hx, serum Na WNL, and no cardiac hx per EMR, d/w RN 2. Ensure Enlive TIDWM; substitute with Nepro if out of Enlive given frequent shortage and pt dislikes Glucerna; Okay to have Ensures brought in by family to optimize PO intake of ONS. Encourage PO 3. [place] food preferences: Applesauce and banana WB, vanilla yogurt WL, soft fruit BIDLD, smoothie WS 4. Routine bowel care; utilize PRN bowel care if pt with continued difficulty; previous trouble passing hard stools per RN 5. Scaled wt this admit; subsequent weekly wts Addendum: 12/22/20 at [address] Amended: Links added.
--- NOTE | 2020-12-22 13:38 | NUR ---
PAGER ID: [phone] MESSAGE: [id number], Lindsay is back in her room whenever you are able to see her. Thanks! geovani [phone]
[2020-12-22] MEDS ORDERED: furosemide 20 MG/2 ML vial IV ONE (16:10)
--- NOTE | 2020-12-22 18:22 | NUR ---
Problems reprioritized. Patient report given, questions answered & plan of care reviewed with Lexi SORTO.
--- NOTE | 2020-12-22 18:25 | NUR ---
Patient in room ORTHO 4013. I have received report from NOREEN Poe and had the opportunity to ask questions and assume patient care.
[2020-12-23] VITALS (8 sets, daily range): BP systolic 95–125; BP diastolic 52–80
[2020-12-23] MEDS: guaiFENesin/DM 10ml UD oral syrup PO SCH ×6 (00:14→22:19)
[2020-12-23] MEDS: ALBUTEROL INHALER 1 PUFF/90 MCG INHALER IH SCH ×5 (00:15→20:29)
[2020-12-23] MEDS: LORazepam 0.5 MG tablet PO PRN (04:26)
--- NOTE | 2020-12-23 06:05 | NUR ---
RECEIVED REPORT FROM NOREEN ANTOINE
--- NOTE | 2020-12-23 06:23 | NUR ---
Problems reprioritized. Patient report given, questions answered & plan of care reviewed with NOREEN Walter.
[2020-12-23] MEDS: diltiazem 30mg tablet PO SCH ×4 (08:00→16:04)
[2020-12-23] MEDS: lactose-reduced food (Ensure Enlive) - 237ml bottle PO SCH ×3 (08:36→18:07)
[2020-12-23] MEDS: enoxaparin 40mg/0.4ml syringe SUBCUT SCH (08:38)
[2020-12-23 10:20] LABS: HEMOGLOBIN 8.6 g/dl (12.0-16.0); MEAN PLATELET VOLUME 6.9 FL (7.4-10.4)
[2020-12-23 10:23] LABS: BASOPHILS # (AUTO) 0.1 X10'3 (0-0.2); BASOPHILS % (AUTO) 0.3 % (0-1); EOSINOPHILS # (AUTO) 0.7 X10'3 (0-0.9); EOSINOPHILS % (AUTO) 1.7 % (0-6); HEMATOCRIT 27.2 % (35.0-45.0); LYMPHOCYTES # (AUTO) 33.2 X10'3 (1.1-4.8); LYMPHOCYTES % (AUTO) 81.3 % (21-51); MEAN CORPUSCULAR HEMOGLOBIN 27.9 PG (27.0-31.0); MEAN CORPUSCULAR HGB CONC 31.5 g/dL (33.0-36.5); MEAN CORPUSCULAR VOLUME 88.6 FL (78-98); MONOCYTES # (AUTO) 0.8 X10'3 (0-0.9); NEUTROPHILS % (AUTO) 14.7 % (42-75); PLATELET COUNT 389 X10'3 (140-440); RED BLOOD COUNT 3.07 X10'6 (4.20-5.60); RED CELL DISTRIBUTION WIDTH 18.7 % (11.5-14.5)
[2020-12-23 10:28] LABS: WHITE BLOOD COUNT 40.9 X10'3 (4.5-11.0)
[2020-12-23 10:51] LABS: ALANINE AMINOTRANSFERASE 35 U/L (12-78); ALBUMIN 2.9 G/DL (3.4-5.0); ALBUMIN/GLOBULIN RATIO 0.9 (1.1-1.5); ALKALINE PHOSPHATASE 119 IU/L (46-116); ANION GAP 3 (8-16); ASPARTATE AMINO TRANSFERASE 25 U/L (10-37); BILIRUBIN,TOTAL 0.3 MG/DL (0.1-1.0); BLOOD UREA NITROGEN 15 MG/DL (7-18); BUN/CREATININE RATIO 22.4 (6.6-38.0); CALCIUM 9.7 MG/DL (8.5-10.1); CHLORIDE 98 MMOL/L (99-107); CREATININE 0.67 MG/DL (0.40-0.90); GLUCOSE 146 MG/DL (70-104); POTASSIUM 5.1 MMOL/L (3.5-5.1); SODIUM 141 MMOL/L (135-145); TOTAL CARBON DIOXIDE 39.6 MMOL/L (24-32); TOTAL PROTEIN 6.2 G/DL (6.4-8.2); eGFR 86 ML/MIN
[2020-12-23 11:42] LABS: TOTAL CELLS COUNTED 100
[2020-12-23 11:43] LABS: ANISOCYTOSIS 2+; PLATELET ESTIMATE NORMAL; POLYCHROMASIA FEW; TEAR DROP CELLS FEW
[2020-12-23 11:44] LABS: ELLIPTOCYTES FEW; STOMATOCYTES 1+
[2020-12-23 12:43] LABS: D-DIMER 1.02 MG/L FEU (0-0.50)
--- NOTE | 2020-12-23 18:20 | NUR ---
gave report to may,
[2020-12-24] MEDS: diltiazem 30mg tablet PO SCH ×3 (00:57→19:19)
[2020-12-24 02:00] VITALS: BP 98/55
[2020-12-24] MEDS: guaiFENesin/DM 10ml UD oral syrup PO SCH ×7 (02:41→23:58)
[2020-12-24] MEDS: ALBUTEROL INHALER 1 PUFF/90 MCG INHALER IH SCH ×6 (04:00→23:20)
[2020-12-24 06:00] VITALS: BP 104/54
--- NOTE | 2020-12-24 06:49 | NUR ---
Patient in room ORTHO 4013B. I have received report from NOREEN LINDO and had the opportunity to ask questions and assume patient care.
[2020-12-24] MEDS: lactose-reduced food (Ensure Enlive) - 237ml bottle PO SCH ×3 (08:00→18:00)
[2020-12-24 10:00] VITALS: BP 116/70
[2020-12-24] MEDS: enoxaparin 40mg/0.4ml syringe SUBCUT SCH (11:18)
--- NOTE | 2020-12-24 11:41 | NUR ---
TRAILED PATIENT ON 5L NASAL CANULA, O2 SAT DROPPED TO 81AND RECOVERED TO 85% AND BOUNCED BETWEEN 83% AND 85% BUT NOT REACHING HIGHER THAN 85%. PUT PATIENT BACK ON 5L HIGH FLOW AND NEEDED NONREBREATHER TO RECOVER. PATIENT CURRENTLY 95% ON 5L HIGH FLOW
[2020-12-24 14:00] VITALS: BP 101/53
[2020-12-24] MEDS: benzonatate 100mg capsule PO PRN (14:37)
--- NOTE | 2020-12-24 16:32 | NUR ---
pt said she self administered MDI at 1500. Pt on 5lpm 95%. no resp distress. Addendum: 12/24/20 at [address] Amended: Links added.
[2020-12-24 18:30] VITALS: BP 114/68
--- NOTE | 2020-12-24 19:32 | NUR ---
Problems reprioritized. Patient report given, questions answered & plan of care reviewed with NOREEN LINDO.
[2020-12-24 22:00] VITALS: BP 127/68
[2020-12-25 02:00] VITALS: BP 117/63
[2020-12-25] MEDS: diltiazem 30mg tablet PO SCH ×4 (02:29→23:45)
[2020-12-25] MEDS: ALBUTEROL INHALER 1 PUFF/90 MCG INHALER IH SCH ×6 (02:53→23:45)
[2020-12-25] MEDS: guaiFENesin/DM 10ml UD oral syrup PO SCH ×6 (04:19→23:45)
[2020-12-25 06:46] VITALS: BP 89/55
[2020-12-25] MEDS: lactose-reduced food (Ensure Enlive) - 237ml bottle PO SCH ×3 (08:57→18:03)
[2020-12-25] MEDS: enoxaparin 40mg/0.4ml syringe SUBCUT SCH (08:57)
[2020-12-25 11:16] VITALS: BP 94/51
--- NOTE | 2020-12-25 11:35 | NUR ---
Reassessment: Pt with mostly 25% PO intake of meals while receiving food preferences though with 100% PO intake of milk with meals and Ensure Enlive TID. PO intake of ONS alone meets roughly 81% minimum estimated energy needs and 88% minimum estimated protein needs, therefore pt meeting estimated nutrient needs at this time with combined PO intake of meals and ONS. RD continues to recommend advancing diet to regular given no cardiac history. LBM 12/24 per I&O. No further nutrition intervention at this time. Will continue to follow. Recommendations: 1. Advance to regular diet if MD agreeable given poor PO hx, serum Na WNL, and no cardiac hx per EMR, d/w RN 2. Ensure Enlive TIDWM; substitute with Nepro if out of Enlive given frequent shortage and pt dislikes Glucerna; Okay to have Ensures brought in by family to optimize PO intake of ONS 3. [place] food preferences: Applesauce and banana WB, vanilla yogurt WL, soft fruit BIDLD, smoothie WS 4. Bowel care per MD; monitor need for routine bowel care given pt previously with trouble passing hard stools per RN 5. Scaled wt this admit; subsequent weekly wts Addendum: 12/25/20 at [address] Amended: Links added.
[2020-12-25] MEDS: benzonatate 100mg capsule PO PRN (12:11)
[2020-12-25 18:00] VITALS: BP 102/48
--- NOTE | 2020-12-25 18:25 | NUR ---
Patient in room ORTHO 4013. I have received report from Tiffanie SORTO and had the opportunity to ask questions and assume patient care.
[2020-12-25 22:00] VITALS: BP 110/50
[2020-12-26 02:00] VITALS: BP 90/41
[2020-12-26] MEDS: guaiFENesin/DM 10ml UD oral syrup PO SCH ×6 (03:46→23:39)
[2020-12-26] MEDS: ALBUTEROL INHALER 1 PUFF/90 MCG INHALER IH SCH ×7 (03:47→23:39)
--- NOTE | 2020-12-26 06:11 | NUR ---
Problems reprioritized. Patient report given, questions answered & plan of care reviewed with Tiffanie SORTO.
[2020-12-26] MEDS: enoxaparin 40mg/0.4ml syringe SUBCUT SCH (07:35)
[2020-12-26] MEDS: benzonatate 100mg capsule PO PRN (07:35)
[2020-12-26] MEDS: lactose-reduced food (Ensure Enlive) - 237ml bottle PO SCH ×3 (08:00→18:01)
[2020-12-26] MEDS: diltiazem 30mg tablet PO SCH ×3 (09:42→23:39)
[2020-12-26 10:00] VITALS: BP 114/59
[2020-12-26] MEDS ORDERED: ALBU6.7H9 IH (11:42)
[2020-12-26] MEDS ORDERED: DILT30TA2 PO (11:42)
[2020-12-26] MEDS ORDERED: ENOX40DI11 SUBCUT (11:42)
--- NOTE | 2020-12-26 13:36 | NUR ---
O2 Sat at rest on room air:_88__% If below 89%: Recovery O2 Sat at rest on _4__LPM:___%:_95__% via NC (mask/nasal cannula, etc..) No further documentation is necessary. If O2 Sat did not drop below 89% on room air,ambulate patient on room air. O2 Sat while ambulating on room air:___% Recovery O2 Sat while ambulating on ___LPM:___% No further documentation is necessary. If patient does not drop below 89% while ambulating, he/she does not qualify for home O2.
[2020-12-26] MEDS: acetaminophen 325mg tablet PO PRN (14:11)
[2020-12-26 15:42] VITALS: BP 111/57
[2020-12-26 18:00] VITALS: BP 107/66
--- NOTE | 2020-12-26 18:23 | NUR ---
Patient in room ORTHO 4013. I have received report from Tiffanie SORTO and had the opportunity to ask questions and assume patient care.
--- NOTE | 2020-12-26 19:26 | NUR ---
Placed regular Nasal cannula on patient due to patient on 4L. Patient not tolerating regular nasal cannula and says she is feeling SOB. Patient oxygenation saturations low 90's on the 4L regular nasal cannula. Patient insisting to have high flow nasal cannula replaced. Patients saturation low 90's on high flow nasal cannula 4L. will reattempt later this evening.
[2020-12-26 22:00] VITALS: BP 115/65
--- NOTE | 2020-12-26 22:51 | NUR ---
changed high pressure tubing to regular tubing. explained HF tubing cannot handle low amounts of oxygen. trimmed nose pieces shorter and patient tolerated well. sats 93%. up to BSC with staff watching only. pt did well.
[2020-12-27 02:00] VITALS: BP 98/56
[2020-12-27] MEDS: guaiFENesin/DM 10ml UD oral syrup PO SCH ×4 (03:40→16:00)
[2020-12-27] MEDS: ALBUTEROL INHALER 1 PUFF/90 MCG INHALER IH SCH ×4 (03:42→16:00)
[2020-12-27 06:00] VITALS: BP 135/75
--- NOTE | 2020-12-27 06:37 | NUR ---
Problems reprioritized. Patient report given, questions answered & plan of care reviewed with Malinda SORTO.
--- NOTE | 2020-12-27 07:25 | NUR ---
pt declined to use MDI at this time because it gives her coughing fits
[2020-12-27] MEDS: lactose-reduced food (Ensure Enlive) - 237ml bottle PO SCH ×2 (08:00→13:00)
[2020-12-27] MEDS: diltiazem 30mg tablet PO SCH ×2 (09:25→16:00)
[2020-12-27] MEDS: enoxaparin 40mg/0.4ml syringe SUBCUT SCH (09:26)
[2020-12-27] MEDS: acetaminophen 325mg tablet PO PRN (09:38)
[2020-12-27 10:00] VITALS: BP 101/50
[2020-12-27 14:00] VITALS: BP 117/60
[2020-12-27] MEDS ORDERED: albuterol 2.5 MG/3 ML nebule NEB PRN (15:00)
== END 2020-12-27 16:10 | disposition home health service (06) | DRG 871 ==
LOC: ER 17:17 → ED HOLD 11-19 19:39 → ORTHO 4S 11-20 00:08
PROVIDERS: ADMIT Internal Medicine; ATTEND Internal Medicine
PROC: B32T1ZZ Computerized Tomography (CT Scan) of Left Pulmonary Artery using Low Osmolar Contrast (ICD-10-PCS; 2020-11-18)
PROC: B3201ZZ Computerized Tomography (CT Scan) of Thoracic Aorta using Low Osmolar Contrast (ICD-10-PCS; 2020-11-18)
PROC: B32S1ZZ Computerized Tomography (CT Scan) of Right Pulmonary Artery using Low Osmolar Contrast (ICD-10-PCS; 2020-11-18)
PROC: XW033E5 Introduction of Remdesivir Anti-infective into Peripheral Vein, Percutaneous Approach, New Technology Group 5 (ICD-10-PCS; principal; 2020-11-19)
PROC: 5A0935A Assistance with Respiratory Ventilation, Less than 24 Consecutive Hours, High Flow/Velocity Cannula (ICD-10-PCS; 2020-11-19)
PROC: 5A0935A Assistance with Respiratory Ventilation, Less than 24 Consecutive Hours, High Flow/Velocity Cannula (ICD-10-PCS; 2020-11-20)
PROC: 5A0935A Assistance with Respiratory Ventilation, Less than 24 Consecutive Hours, High Flow/Velocity Cannula (ICD-10-PCS; 2020-11-21)
PROC: 5A0945A Assistance with Respiratory Ventilation, 24-96 Consecutive Hours, High Flow/Velocity Cannula (ICD-10-PCS; 2020-11-22)
PROC: 5A0935A Assistance with Respiratory Ventilation, Less than 24 Consecutive Hours, High Flow/Velocity Cannula (ICD-10-PCS; 2020-11-24)
PROC: 5A0935A Assistance with Respiratory Ventilation, Less than 24 Consecutive Hours, High Flow/Velocity Cannula (ICD-10-PCS; 2020-11-25)
PROC: 5A0935A Assistance with Respiratory Ventilation, Less than 24 Consecutive Hours, High Flow/Velocity Cannula (ICD-10-PCS; 2020-11-26)
PROC: 5A0935A Assistance with Respiratory Ventilation, Less than 24 Consecutive Hours, High Flow/Velocity Cannula (ICD-10-PCS; 2020-11-27)
PROC: 5A0935A Assistance with Respiratory Ventilation, Less than 24 Consecutive Hours, High Flow/Velocity Cannula (ICD-10-PCS; 2020-11-28)
PROC: 5A0935A Assistance with Respiratory Ventilation, Less than 24 Consecutive Hours, High Flow/Velocity Cannula (ICD-10-PCS; 2020-11-29)
PROC: 5A0935A Assistance with Respiratory Ventilation, Less than 24 Consecutive Hours, High Flow/Velocity Cannula (ICD-10-PCS; 2020-11-30)
PROC: 5A09357 Assistance with Respiratory Ventilation, Less than 24 Consecutive Hours, Continuous Positive Airway Pressure (ICD-10-PCS; 2020-11-30)
PROC: 5A0935A Assistance with Respiratory Ventilation, Less than 24 Consecutive Hours, High Flow/Velocity Cannula (ICD-10-PCS; 2020-12-01)
PROC: 5A09557 Assistance with Respiratory Ventilation, Greater than 96 Consecutive Hours, Continuous Positive Airway Pressure (ICD-10-PCS; 2020-12-01)
PROC: 5A0935A Assistance with Respiratory Ventilation, Less than 24 Consecutive Hours, High Flow/Velocity Cannula (ICD-10-PCS; 2020-12-06)
PROC: 5A0935A Assistance with Respiratory Ventilation, Less than 24 Consecutive Hours, High Flow/Velocity Cannula (ICD-10-PCS; 2020-12-07)
PROC: 5A09357 Assistance with Respiratory Ventilation, Less than 24 Consecutive Hours, Continuous Positive Airway Pressure (ICD-10-PCS; 2020-12-07)
PROC: 5A0935A Assistance with Respiratory Ventilation, Less than 24 Consecutive Hours, High Flow/Velocity Cannula (ICD-10-PCS; 2020-12-08)
PROC: 5A09357 Assistance with Respiratory Ventilation, Less than 24 Consecutive Hours, Continuous Positive Airway Pressure (ICD-10-PCS; 2020-12-08)
PROC: 5A0935A Assistance with Respiratory Ventilation, Less than 24 Consecutive Hours, High Flow/Velocity Cannula (ICD-10-PCS; 2020-12-09)
PROC: 5A09357 Assistance with Respiratory Ventilation, Less than 24 Consecutive Hours, Continuous Positive Airway Pressure (ICD-10-PCS; 2020-12-10)
PROC: 5A0955A Assistance with Respiratory Ventilation, Greater than 96 Consecutive Hours, High Flow/Velocity Cannula (ICD-10-PCS; 2020-12-10)
PROC: 5A0935A Assistance with Respiratory Ventilation, Less than 24 Consecutive Hours, High Flow/Velocity Cannula (ICD-10-PCS; 2020-12-18)
PROC: 5A0935A Assistance with Respiratory Ventilation, Less than 24 Consecutive Hours, High Flow/Velocity Cannula (ICD-10-PCS; 2020-12-19)
PROC: 5A0935A Assistance with Respiratory Ventilation, Less than 24 Consecutive Hours, High Flow/Velocity Cannula (ICD-10-PCS; 2020-12-20)
PROC: 5A0945A Assistance with Respiratory Ventilation, 24-96 Consecutive Hours, High Flow/Velocity Cannula (ICD-10-PCS; 2020-12-21)
PROC: 5A0945A Assistance with Respiratory Ventilation, 24-96 Consecutive Hours, High Flow/Velocity Cannula (ICD-10-PCS; 2020-12-23)
DX: A41.9 Sepsis, unspecified organism (principal); U07.1 COVID-19; J12.82 Pneumonia due to coronavirus disease 2019; J96.01 Acute respiratory failure with hypoxia; E43 Unspecified severe protein-calorie malnutrition; E87.1 Hypo-osmolality and hyponatremia; C91.10 Chronic lymphocytic leukemia of B-cell type not having achieved remission; Z68.1 Body mass index [BMI] 19.9 or less, adult; R00.0 Tachycardia, unspecified; Z66 Do not resuscitate; E87.5 Hyperkalemia; D63.8 Anemia in other chronic diseases classified elsewhere; F41.9 Anxiety disorder, unspecified; K59.00 Constipation, unspecified; Z82.3 Family history of stroke; Z88.1 Allergy status to other antibiotic agents; Z81.1 Family history of alcohol abuse and dependence; Z99.81 Dependence on supplemental oxygen; Z74.01 Bed confinement status
CPT/HCPCS: 36415; 36600; 71045; 71275; 80048; 80053; 82803; 83605; 83615; 83735; 84132; 84145; 84484; 85007; 85018; 85025; 85379; 86140; 87040; 87081; 88184; 88185; 93005; 93970; 94640; 94660; 94668; 94760; 96361; 96365; 96366; 96372; 97110; 97112; 97116; 97161; 97530; 97535; 99285; G0378; J1100; J1650; J1940; J1956; J2270; J7030; J7050; J8540; M0243; Q9967